=== PATIENT | male | born 1955 | race Caucasian/White ===

== ENCOUNTER → 2018-02-23 09:19 | Outpatient (CLI) | payer OTHER, SELFPAY ==
[2018-02-23 10:17] LABS: Add Manual Diff / Slide Review NO; Eosinophils Percent Auto 4.9 % (2-4); Hematocrit 41.1 % (41-53); Lymphocytes Percent Auto 25.5 % (25-40); Mean Corpuscular Hemoglobin 32.6 PG (26-34); Mean Corpuscular Volume 95.9 fL (80-100); Monocytes Percent Auto 9.8 % (3-14); Neutrophils Absolute Auto 3900 /uL (3000-5900); Neutrophils Percent Auto 58.8 % (50-75); Platelet Count 287 X10^3/uL (150-400); Red Blood Cell Count 4.28 X10^6/uL (4.5-5.9); Red Cell Distribution Width 12.5 % (11.6-14.8); White Blood Cell Count 6.6 X10^3/uL (4.5-11.0)
[2018-02-23 10:35] LABS: Alanine Aminotransferase 36 IU/L (21-72); Albumin 4.8 g/dL (3.5-5.0); Albumin Globulin Ratio 1.7 (1.0-2.8); Alkaline Phosphatase 74 U/L (38-126); Aspartate Aminotransferase 31 IU/L (17-59); BUN Creatinine Ratio 17.8 (6-22); Bilirubin Total 0.5 mg/dL (0.2-1.3); Blood Urea Nitrogen 16 mg/dL (9-20); C-Reactive Protein Quant 0.5 mg/dL (<1.0); Calcium 10.2 mg/dL (8.4-10.2); Carbon Dioxide 30 mmol/L (22-32); Chloride 102 mmol/L (98-107); Estimated Glomerular Filt Rate > 60.0 mL/min (>60); Globulin 2.9 g/dL (1.7-4.1); Glucose 121 mg/dL (80-110); HEMOLYSIS < 15 (0-50); Potassium 4.6 mmol/L (3.4-5.1); Sodium 146 mmol/L (137-145); Total Protein 7.7 g/dL (6.3-8.2); Uric Acid 5.3 mg/dL (3.5-8.5)
[2018-02-23 10:37] LABS: Erythrocyte Sedimentation Rate 13 MM/HR (0-15)
== END ==
PROVIDERS: Family Provider Physician Assistant; PCP Physician Assistant; Visit Provider Specialist/Technologist Athletic Trainer
DX: M10.00 Idiopathic gout, unspecified site (principal)
CPT/HCPCS: 36415; 80053; 84550; 85025; 85651; 86140

== ENCOUNTER 2018-03-11 15:15 | Emergency (ER) | payer OTHER, SELFPAY ==
[2018-03-11 15:32] VITALS: BP 185/90; PULSE 66; RESP 18; TEMP 36.7; O2SAT 98
--- NOTE | 2018-03-11 15:49 | DI.CT.S_ITS ---
PROCEDURE: CT HEAD/BRAIN WO CON INDICATIONS: headache, vision change TECHNIQUE: Noncontrast 4.5 mm thick angled axial sections acquired from the foramen magnum to the vertex, with coronal and sagittal reformats. For radiation dose reduction, the following was used: automated exposure control, adjustment of mA and/or kV according to patient size. COMPARISON: None. FINDINGS: Image quality: Excellent. CSF spaces: Basal cisterns are patent. No extra-axial fluid collections. The ventricles are symmetric in size and shape. Brain: No intracranial bleeds or masses. There is cerebral volume loss for age, with resultant ventricular and sulcal prominence. There are periventricular and deep white matter chronic small vessel ischemic changes. There is intracranial internal carotid artery atherosclerosis. Skull and face: Calvarium and visualized facial bones appear intact, without suspicious lesions. Sinuses: Visualized sinuses demonstrate mild pansinus mucosal thickening most prominent in the ethmoid sinuses. IMPRESSION: 1. No acute intracranial process. 2. Mild atrophy and chronic microvascular ischemic changes. Dictated by: Sindy Humphrey M.D. on 03/11/2018 at 16:16 Approved by: Sindy Humphrey M.D. on 03/11/2018 at 16:16
[2018-03-11] MEDS: predniSONE 20 MG TABLET 40 MG PO (15:55)
--- NOTE | 2018-03-11 15:57 | PC.NURSE ---
Pt reports to ED after eye exam. Comes from Urgent care where eye DR sent him for vision changes in rt eye and possibly rt dental pain. Also told has high BP. Is a/o x4, LAND, and bp [address] and lab will draw. Meds per MD order
[2018-03-11 16:18] LABS: Add Manual Diff / Slide Review NO; Basophils Percent Auto 1.4 % (0-2); Eosinophils Percent Auto 3.8 % (2-4); Hematocrit 41.7 % (41-53); Hemoglobin 14.1 g/dL (13.5-17.5); Lymphocytes Percent Auto 27.4 % (25-40); Mean Corpuscular HGB Conc 33.9 % (30-36); Mean Corpuscular Hemoglobin 32.5 PG (26-34); Mean Corpuscular Volume 95.9 fL (80-100); Monocytes Percent Auto 9.5 % (3-14); Neutrophils Absolute Auto 5200 /uL (3000-5900); Neutrophils Percent Auto 57.9 % (50-75); Platelet Count 303 X10^3/uL (150-400); Red Blood Cell Count 4.35 X10^6/uL (4.5-5.9); Red Cell Distribution Width 12.9 % (11.6-14.8); White Blood Cell Count 9.1 X10^3/uL (4.5-11.0)
[2018-03-11 16:34] LABS: BUN Creatinine Ratio 22.5 (6-22); Blood Urea Nitrogen 18 mg/dL (9-20); C-Reactive Protein Quant < 0.5 mg/dL (<1.0); Calcium 9.4 mg/dL (8.4-10.2); Carbon Dioxide 27 mmol/L (22-32); Chloride 104 mmol/L (98-107); Estimated Glomerular Filt Rate > 60.0 mL/min (>60); Glucose 92 mg/dL (80-110); HEMOLYSIS < 15 (0-50); Potassium 4.3 mmol/L (3.4-5.1); Sodium 145 mmol/L (137-145)
--- NOTE | 2018-03-11 16:50 | ED.EYEPROB ---
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 The patient has had blurred vision in his right eye for over 1 month and visited his cattle dipper to discuss whether not his gout medications may have contributed. His cattle dipper recommended he see an eye doctor which just happened today. His eye exam was completed and the patient was sent here for evaluation of possible temporal arteritis (giant cell arteritis). The patient also reports some right-sided temporal pain that comes and goes and occasionally swells. Optometry will be sending their note but states his vision was still 20/40 in the right eye and states his visual changes only of blurring. The patient denies any other neurologic problems such as numbness, tingling or weakness. He denies any injury. He did have an episode hypertension of the 190s while at the optometry office. The patient has no chest pain or shortness of breath. He denies any nausea or vomiting. He denies any injury to head neck or eye. Visual Acuity 20/40. MD chief complaint: eye pain and vision change Onset (ago): month(s) Onset description: unknown Duration: constant Location: right eye Eye Symptoms: blurry vision Place: home Associated symptoms: headache Treatments Prior to Arrival: other Related Data Patient tetanus UTD: Yes Home Medications Medication Instructions Recorded Confirmed ibuprofen 200 mg PO PRN PRN #0 06/02/17 03/11/18 allopurinol 300 mg PO DAILY 03/11/18 03/11/18 Previous Rx's Medication Instructions Recorded prednisone 20 mg PO BID 30 Days #60 tab 03/11/18 Allergies Allergy/AdvReac Type Severity Reaction Status Date / Time No Known Drug Allergies Allergy Verified 03/11/18 15:31 Review of Systems Review of Systems All systems reviewed & are unremarkable except as noted in HPI and below Constitutional Denies chills, Denies fever(s), Reports headache(s), Denies lethargy and Denies weakness Eyes Reports blurry vision, Denies change in vision, Denies eye discharge, Denies irritation, Denies loss of vision and Reports eye pain ENT Ears, Nose, Mouth, and Throat: Denies change in voice, Reports headache(s), Denies neck pain and Denies sore throat Cardiovascular Denies chest pain, Denies irregular heart rhythm, Denies lightheadedness, Denies palpitations, Denies dyspnea, Denies dyspnea on exertion and Denies orthopnea Respiratory Denies cough, Denies dyspnea, Denies dyspnea on exertion and Denies wheezing Gastrointestinal Gastrointestinal: Denies abdominal pain, Denies change in bowel habits, Denies diarrhea, Denies nausea and Denies vomiting Genitourinary Denies hematuria, Denies flank pain, Denies urinary incontinence and Denies urinary urgency Musculoskeletal Denies neck pain Integumentary/Breasts Denies pruritus, Denies erythema, Denies rash and Denies wounds Neurologic Denies confusion, Reports headache(s), Denies loss of vision and Denies weakness Psychiatric Denies anxiety, Denies confusion, Denies depression, Denies homicidal ideation and Denies suicidal ideation Endocrine Denies palpitations Hematologic/Lymphatic Denies easy bruising Allergic/Immunologic Denies wheezing PFSH Family History Brother Gout, unspecified Essential hypertension Mother Essential hypertension Social History Smoking Status: Never smoker Exam Narrative Exam Narrative: GENERAL: This is a well-nourished, well-developed patient, in mild distress. HEAD: Atraumatic. Normocephalic. No temporal or scalp tenderness. EYES: Pupils equal round and reactive. Extraocular motions intact. No scleral icterus. No injection or drainage. ENT: Nose without bleeding, purulent drainage or septal hematoma. Throat without erythema, tonsillar hypertrophy or exudate. Uvula midline. Airway patent. NECK: Trachea midline. No JVD or lymphadenopathy. Supple, nontender, no meningeal signs. CARDIOVASCULAR: Regular rate and rhythm without murmurs, gallops, or rubs. RESPIRATORY: Clear to auscultation. Breath sounds equal bilaterally. No wheezes, rales, or rhonchi. GASTROINTESTINAL: Abdomen soft, non-tender, nondistended. No hepato-splenomegaly, or palpable masses. No guarding. EXTREMITIES: No clubbing, cyanosis, or edema. No joint tenderness, effusion, or edema noted. BACK: Nontender without deformity or crepitance. No flank tenderness. NEURO: AOx3. SKIN: No rash or erythema. NIH Stroke Scale 1a. LOC: Patient is alert and keenly responsive (0) 1b. LOC Questions: Patient answers both LOC questions accurately (0) 1c. LOC Commands: Patient performs both tasks correctly (0) 2. Best Gaze: Normal (0) 3. Visual: No visual loss (0) 4. Facial palsy: Normal symmetrical movements (0) 5. Motor arm: No drift (0) 6. Motor leg: No drift (0) 7. Limb ataxia: Absent (0) 8. Sensory: Normal (0) 9. Best language: No aphasia; normal (0) 10. Dysarthria: Normal (0) 11. Extinction and inattention: No abnormality (0) NIHSS: 0 Initial Vital Signs Initial Vital Signs: Vital Signs Temperature 98.1 F 03/11/18 15:32 Pulse Rate 66 03/11/18 15:32 Respiratory Rate 18 03/11/18 15:32 Blood Pressure 185/90 H 03/11/18 15:32 Pulse Oximetry 98 03/11/18 15:32 Course Orders Ordered: ED Orders 03/11/18 15:49 CT head/brain wo con Stat 03/11/18 16:08 Basic Metabolic Panel Stat C-Reactive Protein Quant Stat Complete Blood Count AUTO DIFF Stat Erythrocyte Sedimentation Rate Stat Discontinued Medications Prednisone (Deltasone) 40 mg PO NOW ONE Stop: 03/11/18 15:51 Last Admin: 03/11/18 15:55 Dose: 40 mg Reevaluation(s) Reevaluation #1: Patient's picking crew supervisor from [facility] called and related above information including right-sided reproducible temporal headache with associated visual change. She noted no significant findings on her exam Consultations Consultation #1: call to [facility] to consult with OPHTHO. I have related the patient's history and physical as well as the findings from local Optometry. We discussed negative CT and normal labs including inflammatory markers, ESR and CRP. We agree that there is still a slight suspicion for giant cell arteritis and the patient is most appropriately placed on steroids and follow up closely with local ophthalmology. Time: 17:10 Vital Signs - 8 hr 03/11/18 15:32 03/11/18 18:05 03/11/18 18:16 Temperature 98.1 F Pulse Rate 66 77 74 Respiratory Rate 18 21 20 Blood Pressure 185/90 H 156/91 H Blood Pressure [Right Arm] 156/91 H Pulse Oximetry 98 94 98 MDM - Eye Problem Lab Data Result diagrams: 03/11/18 16:08 03/11/18 16:08 Lab Results 03/11/18 03/11/18 Range/Units 16:08 16:08 WBC 9.1 (4.5-11.0) X10^3/uL RBC 4.35 L (4.5-5.9) X10^6/uL Hgb 14.1 (13.5-17.5) g/dL Hct 41.7 (41-53) % MCV 95.9 (80-100) fL MCH 32.5 (26-34) PG MCHC 33.9 (30-36) % RDW 12.9 (11.6-14.8) % Plt Count 303 (150-400) X10^3/uL Neut % (Auto) 57.9 (50-75) % Lymph % (Auto) 27.4 (25-40) % [place] % (Auto) 9.5 (3-14) % Eos % (Auto) 3.8 (2-4) % Baso % (Auto) 1.4 (0-2) % Neut # (Auto) 5200 (9938-0977) /uL ESR 13 (0-15) MM/HR Sodium 145 (137-145) mmol/L Potassium 4.3 (3.4-5.1) mmol/L Chloride 104 (98-107) mmol/L Carbon Dioxide 27 (22-32) mmol/L BUN 18 (9-20) mg/dL Creatinine 0.80 (0.66-1.25) mg/dL Estimated GFR > 60.0 (>60) mL/min BUN/Creatinine Ratio 22.5 H (6-22) Glucose 92 (80-110) mg/dL Calcium 9.4 (8.4-10.2) mg/dL C-Reactive Protein < 0.5 (<1.0) mg/dL Discharge Plan Departure Patient Disposition: Home Clinical Impression: Change in vision, GCA (giant cell arteritis) Discharge Date/Time: 03/11/18 18:17 Interventions: ED Discharge Assessment Last Done: 03/11/18 18:16 Instructions: DI for Visual Field Disturbances Activity Restrictions/Additional Instructions: *You have been diagnosed with [ right-sided headache blurred vision, suspicion remains for giant cell arteritis ] *What to do: *Take medications as directed: Your prescription has been electronically transmitted to your preferred pharmacy *Follow up with Ophthalmology, please arrive at their office tomorrow morning at 8:30 a.m.. Let them know your in the emergency department and we request prompt follow-up for continued evaluation and possible management giant cell arteritis *Return to ER if you should have any new, worsening or concerning symptoms Prescriptions: New prednisone 20 mg tablet 20 mg PO BID 30 Days Qty: 60 RF: 0 No Action ibuprofen 200 MG tablet 200 mg PO PRN PRN (Reason: Pain, Mild) Qty: 0 RF: 0 allopurinol 300 mg Tablet 300 mg PO DAILY RF: 0 Referrals: Troy Nickerson MD [Physician] -
[2018-03-11 16:52] LABS: Erythrocyte Sedimentation Rate 13 MM/HR (0-15)
--- NOTE | 2018-03-11 16:54 | ED_ITS ---
HPI - Eye Problem General Chief complaint: Hypertension Stated complaint: High BP Time Seen by Provider: 03/11/18 15:34 Source: patient Mode of arrival: ambulatory Limitations: no limitations History of Present Illness HPI Narrative: 62-year-old nonsmoker presents to the emergency department at the request of his snubber for evaluation right-sided headache and visual change. The patient has had blurred vision in his right eye for over 1 month and visited his photographic press screwmaker to discuss whether not his gout medications may have contributed. His photographic press screwmaker recommended he see an eye doctor which just happened today. His eye exam was completed and the patient was sent here for evaluation of possible temporal arteritis (giant cell arteritis). The patient also reports some right-sided temporal pain that comes and goes and occasionally swells. Optometry will be sending their note but states his vision was still 20/40 in the right eye and states his visual changes only of blurring. The patient denies any other neurologic problems such as numbness, tingling or weakness. He denies any injury. He did have an episode hypertension of the 190s while at the optometry office. The patient has no chest pain or shortness of breath. He denies any nausea or vomiting. He denies any injury to head neck or eye. Visual Acuity 20/40. MD chief complaint: eye pain and vision change Onset (ago): month(s) Onset description: unknown Duration: constant Location: right eye Eye Symptoms: blurry vision Place: home Associated symptoms: headache Treatments Prior to Arrival: other Related Data Patient tetanus UTD: Yes Home Medications Medication Instructions Recorded Confirmed ibuprofen 200 mg PO PRN PRN #0 06/02/17 03/11/18 allopurinol 300 mg PO DAILY 03/11/18 03/11/18 Previous Rx's Medication Instructions Recorded prednisone 20 mg PO BID 30 Days #60 tab 03/11/18 Allergies Allergy/AdvReac Type Severity Reaction Status Date / Time No Known Drug Allergies Allergy Verified 03/11/18 15:31 Review of Systems Review of Systems All systems reviewed & are unremarkable except as noted in HPI and below Constitutional Denies chills, Denies fever(s), Reports headache(s), Denies lethargy and Denies weakness Eyes Reports blurry vision, Denies change in vision, Denies eye discharge, Denies irritation, Denies loss of vision and Reports eye pain ENT Ears, Nose, Mouth, and Throat: Denies change in voice, Reports headache(s), Denies neck pain and Denies sore throat Cardiovascular Denies chest pain, Denies irregular heart rhythm, Denies lightheadedness, Denies palpitations, Denies dyspnea, Denies dyspnea on exertion and Denies orthopnea Respiratory Denies cough, Denies dyspnea, Denies dyspnea on exertion and Denies wheezing Gastrointestinal Gastrointestinal: Denies abdominal pain, Denies change in bowel habits, Denies diarrhea, Denies nausea and Denies vomiting Genitourinary Denies hematuria, Denies flank pain, Denies urinary incontinence and Denies urinary urgency Musculoskeletal Denies neck pain Integumentary/Breasts Denies pruritus, Denies erythema, Denies rash and Denies wounds Neurologic Denies confusion, Reports headache(s), Denies loss of vision and Denies weakness Psychiatric Denies anxiety, Denies confusion, Denies depression, Denies homicidal ideation and Denies suicidal ideation Endocrine Denies palpitations Hematologic/Lymphatic Denies easy bruising Allergic/Immunologic Denies wheezing PFSH Family History Brother Gout, unspecified Essential hypertension Mother Essential hypertension Social History Smoking Status: Never smoker Exam Narrative Exam Narrative: GENERAL: This is a well-nourished, well-developed patient, in mild distress. HEAD: Atraumatic. Normocephalic. No temporal or scalp tenderness. EYES: Pupils equal round and reactive. Extraocular motions intact. No scleral icterus. No injection or drainage. ENT: Nose without bleeding, purulent drainage or septal hematoma. Throat without erythema, tonsillar hypertrophy or exudate. Uvula midline. Airway patent. NECK: Trachea midline. No JVD or lymphadenopathy. Supple, nontender, no meningeal signs. CARDIOVASCULAR: Regular rate and rhythm without murmurs, gallops, or rubs. RESPIRATORY: Clear to auscultation. Breath sounds equal bilaterally. No wheezes , rales, or rhonchi. GASTROINTESTINAL: Abdomen soft, non-tender, nondistended. No hepato-splenomegaly , or palpable masses. No guarding. EXTREMITIES: No clubbing, cyanosis, or edema. No joint tenderness, effusion, or edema noted. BACK: Nontender without deformity or crepitance. No flank tenderness. NEURO: AOx3. SKIN: No rash or erythema. NIH Stroke Scale 1a. LOC: Patient is alert and keenly responsive (0) 1b. LOC Questions: Patient answers both LOC questions accurately (0) 1c. LOC Commands: Patient performs both tasks correctly (0) 2. Best Gaze: Normal (0) 3. Visual: No visual loss (0) 4. Facial palsy: Normal symmetrical movements (0) 5. Motor arm: No drift (0) 6. Motor leg: No drift (0) 7. Limb ataxia: Absent (0) 8. Sensory: Normal (0) 9. Best language: No aphasia; normal (0) 10. Dysarthria: Normal (0) 11. Extinction and inattention: No abnormality (0) NIHSS: 0 Initial Vital Signs Initial Vital Signs: Vital Signs Temperature 98.1 F 03/11/18 15:32 Pulse Rate 66 03/11/18 15:32 Respiratory Rate 18 03/11/18 15:32 Blood Pressure 185/90 H 03/11/18 15:32 Pulse Oximetry 98 03/11/18 15:32 Course Orders Ordered: ED Orders 03/11/18 15:49 CT head/brain wo con Stat 03/11/18 16:08 Basic Metabolic Panel Stat C-Reactive Protein Quant Stat Complete Blood Count AUTO DIFF Stat Erythrocyte Sedimentation Rate Stat Discontinued Medications Prednisone (Deltasone) 40 mg PO NOW ONE Stop: 03/11/18 15:51 Last Admin: 03/11/18 15:55 Dose: 40 mg Reevaluation(s) Reevaluation #1: Patient's snubber from [facility] called and related above information including right-sided reproducible temporal headache with associated visual change. She noted no significant findings on her exam Consultations Consultation #1: call to [facility] to consult with OPHTHO. I have related the patient's history and physical as well as the findings from local Optometry. We discussed negative CT and normal labs including inflammatory markers, ESR and CRP. We agree that there is still a slight suspicion for giant cell arteritis and the patient is most appropriately placed on steroids and follow up closely with local ophthalmology. Time: 17:10 Vital Signs - 8 hr 03/11/18 15:32 03/11/18 18:05 03/11/18 18:16 Temperature 98.1 F Pulse Rate 66 77 74 Respiratory Rate 18 21 20 Blood Pressure 185/90 H 156/91 H Blood Pressure [Right Arm] 156/91 H Pulse Oximetry 98 94 98 MDM - Eye Problem Lab Data Result diagrams: 03/11/18 16:08 03/11/18 16:08 Lab Results 03/11/18 03/11/18 Range/Units 16:08 16:08 WBC 9.1 (4.5-11.0) X10^3/uL RBC 4.35 L (4.5-5.9) X10^6/uL Hgb 14.1 (13.5-17.5) g/dL Hct 41.7 (41-53) % MCV 95.9 (80-100) fL MCH 32.5 (26-34) PG MCHC 33.9 (30-36) % RDW 12.9 (11.6-14.8) % Plt Count 303 (150-400) X10^3/uL Neut % (Auto) 57.9 (50-75) % Lymph % (Auto) 27.4 (25-40) % [place] % (Auto) 9.5 (3-14) % Eos % (Auto) 3.8 (2-4) % Baso % (Auto) 1.4 (0-2) % Neut # (Auto) 5200 (1938-6328) /uL ESR 13 (0-15) MM/HR Sodium 145 (137-145) mmol/L Potassium 4.3 (3.4-5.1) mmol/L Chloride 104 (98-107) mmol/L Carbon Dioxide 27 (22-32) mmol/L BUN 18 (9-20) mg/dL Creatinine 0.80 (0.66-1.25) mg/dL Estimated GFR > 60.0 (>60) mL/min BUN/Creatinine Ratio 22.5 H (6-22) Glucose 92 (80-110) mg/dL Calcium 9.4 (8.4-10.2) mg/dL C-Reactive Protein < 0.5 (<1.0) mg/dL Discharge Plan Departure Patient Disposition: Home Clinical Impression: Change in vision, GCA (giant cell arteritis) Discharge Date/Time: 03/11/18 18:17 Interventions: ED Discharge Assessment Last Done: 03/11/18 18:16 Instructions: DI for Visual Field Disturbances Activity Restrictions/Additional Instructions: *You have been diagnosed with [ right-sided headache blurred vision, suspicion remains for giant cell arteritis ] *What to do: *Take medications as directed: Your prescription has been electronically transmitted to your preferred pharmacy *Follow up with Ophthalmology, please arrive at their office tomorrow morning at 8:30 a.m.. Let them know your in the emergency department and we request prompt follow-up for continued evaluation and possible management giant cell arteritis *Return to ER if you should have any new, worsening or concerning symptoms Prescriptions: New prednisone 20 mg tablet 20 mg PO BID 30 Days Qty: 60 RF: 0 No Action ibuprofen 200 MG tablet 200 mg PO PRN PRN (Reason: Pain, Mild) Qty: 0 RF: 0 allopurinol 300 mg Tablet 300 mg PO DAILY RF: 0 Referrals: Troy Nickerson MD [Physician] -
[2018-03-11 18:05] VITALS: BP 156/91; PULSE 77; RESP 21; O2SAT 94
[2018-03-11 18:16] VITALS: BP 156/91; PULSE 74; RESP 20; O2SAT 98
== END 2018-03-11 18:17 | disposition home or self-care (01) ==
PROVIDERS: Emergency Provider Emergency Medicine; Family Provider Physician Assistant; PCP Physician Assistant
DX: H53.9 Unspecified visual disturbance (principal); M31.6 Other giant cell arteritis
CPT/HCPCS: 36415; 70450; 80048; 85025; 85651; 86140; 93041; 99283; 99285

== ENCOUNTER → 2019-02-02 07:57 | Outpatient (CLI) | payer OTHER, SELFPAY ==
[2019-02-02 09:32] LABS: Alanine Aminotransferase 16 IU/L (21-72); Albumin 4.5 g/dL (3.5-5.0); Alkaline Phosphatase 74 U/L (38-126); Aspartate Aminotransferase 25 IU/L (17-59); BUN Creatinine Ratio 16.3 (6-22); Bilirubin Total 0.5 mg/dL (0.2-1.3); Blood Urea Nitrogen 13 mg/dL (9-20); Calcium 9.6 mg/dL (8.4-10.2); Carbon Dioxide 29 mmol/L (22-32); Chloride 103 mmol/L (98-107); Estimated Glomerular Filt Rate > 60.0 mL/min (>60); Globulin 2.9 g/dL (1.7-4.1); Glucose 96 mg/dL (80-110); Potassium 3.9 mmol/L (3.4-5.1); Sodium 143 mmol/L (137-145); Total Protein 7.4 g/dL (6.3-8.2); Uric Acid 4.9 mg/dL (3.5-8.5)
[2019-02-02 09:33] LABS: Albumin Globulin Ratio 1.6 (1.0-2.8); Cholesterol 189 mg/dL (140-199); HDL Cholesterol 38 mg/dL (40-60); HEMOLYSIS < 15 (0-50); LDL Cholesterol Calculated 128 mg/dL (<100); Triglycerides 113 mg/dL (35-150)
[2019-02-02 09:44] LABS: Creatinine Urine Random 137.3 mg/dL; Microalbumi Creatinin Ratio Ur 4.3 ug/mg CR (<30); Microalbumin Urine Random < 0.6 mg/dL (0-1.6)
[2019-02-02 10:02] LABS: Prostate Specific Antigen Scrn 1.01 ng/mL (0.1-4.0)
== END ==
PROVIDERS: PCP Physician Assistant; Visit Provider Physician Assistant
DX: E78.1 Pure hyperglyceridemia (principal); I10 Essential (primary) hypertension; M10.9 Gout, unspecified; Z12.5 Encounter for screening for malignant neoplasm of prostate
CPT/HCPCS: 36415; 80053; 80061; 82043; 82570; 84550; G0103

== ENCOUNTER → 2020-02-20 08:26 | Outpatient (CLI) | payer OTHER, SELFPAY ==
[2020-02-20 09:08] LABS: Hemoglobin 13.7 g/dL (13.5-17.5); Mean Corpuscular HGB Conc 34.3 % (30-36); Mean Corpuscular Hemoglobin 33.1 PG (26-34); Mean Corpuscular Volume 96.6 fL (80-100); Platelet Count 298 X10^3/uL (150-400); Red Blood Cell Count 4.15 X10^6/uL (4.5-5.9); Red Cell Distribution Width 13.1 % (11.6-14.8); White Blood Cell Count 5.9 X10^3/uL (4.5-11.0)
[2020-02-20 09:30] LABS: Alanine Aminotransferase 21 IU/L (<50); Albumin 4.5 g/dL (3.5-5.0); Albumin Globulin Ratio 1.5 (1.0-2.8); Alkaline Phosphatase 76 U/L (38-126); Aspartate Aminotransferase 25 IU/L (17-59); BUN Creatinine Ratio 20.7 (6-22); Bilirubin Total 0.5 mg/dL (0.2-1.3); Blood Urea Nitrogen 18 mg/dL (9-20); Calcium 9.6 mg/dL (8.4-10.2); Carbon Dioxide 31 mmol/L (22-32); Chloride 104 mmol/L (98-107); Cholesterol 218 mg/dL (140-199); Estimated Glomerular Filt Rate > 60.0 mL/min (>60); Glucose 141 mg/dL (80-110); HDL Cholesterol 54 mg/dL (40-60); HEMOLYSIS < 15 (0-50); LDL Cholesterol Calculated 141 mg/dL (<100); Potassium 4.4 mmol/L (3.4-5.1); Sodium 142 mmol/L (137-145); Total Protein 7.5 g/dL (6.3-8.2); Triglycerides 117 mg/dL (35-150); Uric Acid 3.9 mg/dL (3.5-8.5)
[2020-02-20 09:58] LABS: TSH w/ Reflex to FT4 1.56 uIU/mL (0.47-4.68)
== END ==
PROVIDERS: PCP Registered Nurse Diabetes Educator; Referring Provider Registered Nurse Diabetes Educator; Visit Provider Registered Nurse Diabetes Educator
DX: E78.5 Hyperlipidemia, unspecified (principal); I10 Essential (primary) hypertension; M1A.0790 Idiopathic chronic gout, unspecified ankle and foot, without tophus (tophi)
CPT/HCPCS: 36415; 80053; 80061; 84443; 84550; 85027

== ENCOUNTER → 2020-02-22 07:07 | Outpatient (CLI) | payer OTHER, SELFPAY ==
[2020-02-22 08:37] LABS: Hemoglobin A1C% w Est Avg Glu 5.4 % (4.0-6.0)
[2020-02-22 08:50] LABS: Glucose 95 mg/dL (80-110)
== END ==
PROVIDERS: PCP Registered Nurse Diabetes Educator; Referring Provider Registered Nurse Diabetes Educator; Visit Provider Registered Nurse Diabetes Educator
DX: R73.9 Hyperglycemia, unspecified (principal)
CPT/HCPCS: 36415; 82947; 83036

== ENCOUNTER → 2020-08-16 12:54 | Outpatient (CLI) | payer OTHER, SELFPAY ==
[2020-08-16] MEDS: COVID-19 VACC, Ad26(JANSSEN)/PF 0.5 ML IM (13:06)
== END ==
PROVIDERS: PCP Registered Nurse Diabetes Educator; Visit Provider Internal Medicine
DX: Z23 Encounter for immunization (principal)
CPT/HCPCS: 0031A; 91303

== ENCOUNTER → 2020-09-06 12:20 | Outpatient (CLI) | payer OTHER, SELFPAY ==
--- NOTE | 2020-09-06 12:21 | DI.RAD.S_ITS ---
PROCEDURE: XR KNEE LT 3V INDICATIONS: L knee pain x 3 weeks, no trauma. TECHNIQUE: 3 views of the knee were acquired. COMPARISON: None. FINDINGS: Bones: No acute fractures or dislocations. No suspicious bony lesions. Mild tricompartmental degenerative changes of the left knee with marginal osteophyte formation Soft tissues: There is a small suprapatellar joint effusion. No suspicious soft tissue calcifications. IMPRESSION: Left knee without acute fracture or dislocation. Mild tricompartmental degenerative change of the left knee with associated suprapatellar joint effusion. If there are persistent symptoms or clinical suspicion for pathology, then repeat radiographs or advanced imaging (CT, MRI or bone scan) may be considered for further evaluation. Dictated by: Dakota Ruffin M.D. on 09/06/2020 at 17:31 Approved by: Dakota Ruffin M.D. on 09/06/2020 at 17:32
== END ==
PROVIDERS: PCP Registered Nurse Diabetes Educator; Referring Provider Registered Nurse Diabetes Educator; Visit Provider Registered Nurse Diabetes Educator
DX: M17.12 Unilateral primary osteoarthritis, left knee (principal); M25.462 Effusion, left knee
CPT/HCPCS: 73562

== ENCOUNTER → 2021-02-12 07:26 | Outpatient (CLI) | payer OTHER, SELFPAY ==
[2021-02-12 07:54] LABS: Add Manual Diff / Slide Review NO; Basophils Absolute Auto 100 /uL (0-100); Basophils Percent Auto 1.2 % (0-2); Eosinophils Absolute Auto 300 /uL (0-450); Hematocrit 39.2 % (41-53); Hemoglobin 13.1 g/dL (13.5-17.5); Lymphocytes Absolute Auto 1900 /uL (1100-4500); Lymphocytes Percent Auto 27.8 % (25-40); Mean Corpuscular HGB Conc 33.5 % (30-36); Mean Corpuscular Volume 95.6 fL (80-100); Monocytes Absolute Auto 600 /uL (0-900); Monocytes Percent Auto 8.4 % (3-14); Neutrophils Absolute Auto 3900 /uL (1500-7000); Neutrophils Percent Auto 57.6 % (50-75); Platelet Count 319 X10^3/uL (150-400); Red Cell Distribution Width 12.8 % (11.6-14.8); White Blood Cell Count 6.8 X10^3/uL (4.5-11.0)
[2021-02-12 08:09] LABS: Alanine Aminotransferase 18 IU/L (<50); Albumin 4.6 g/dL (3.5-5.0); Albumin Globulin Ratio 1.6 (1.0-2.8); Alkaline Phosphatase 70 U/L (38-126); Aspartate Aminotransferase 24 IU/L (17-59); BUN Creatinine Ratio 20.5 (6-22); Bilirubin Total 0.5 mg/dL (0.2-1.3); Blood Urea Nitrogen 16 mg/dL (9-20); Calcium 9.5 mg/dL (8.4-10.2); Carbon Dioxide 31 mmol/L (22-32); Chloride 103 mmol/L (98-107); Cholesterol 208 mg/dL (140-199); Estimated Glomerular Filt Rate > 60.0 mL/min (>60); Globulin 2.8 g/dL (1.7-4.1); Glucose 96 mg/dL (80-110); HDL Cholesterol 40 mg/dL (40-60); HEMOLYSIS < 15 (0-50); LDL Cholesterol Calculated 138 mg/dL (<100); Potassium 4.1 mmol/L (3.4-5.1); Sodium 143 mmol/L (137-145); Total Protein 7.4 g/dL (6.3-8.2); Triglycerides 150 mg/dL (35-150); Uric Acid 4.9 mg/dL (3.5-8.5)
[2021-02-12 08:39] LABS: TSH w/ Reflex to FT4 1.65 uIU/mL (0.47-4.68)
== END ==
PROVIDERS: PCP Registered Nurse Diabetes Educator; Referring Provider Registered Nurse Diabetes Educator; Visit Provider Registered Nurse Diabetes Educator
DX: E78.5 Hyperlipidemia, unspecified (principal); I10 Essential (primary) hypertension; M1A.0790 Idiopathic chronic gout, unspecified ankle and foot, without tophus (tophi); R79.89 Other specified abnormal findings of blood chemistry
CPT/HCPCS: 36415; 80053; 80061; 84443; 84550; 85025

== ENCOUNTER → 2021-05-22 07:52 | Outpatient (CLI) | payer OTHER, SELFPAY ==
[2021-05-22 09:31] LABS: Add Manual Diff / Slide Review NO; Basophils Absolute Auto 100 /uL (0-100); Basophils Percent Auto 0.9 % (0-2); Eosinophils Absolute Auto 300 /uL (0-450); Hematocrit 37.6 % (41-53); Lymphocytes Absolute Auto 2100 /uL (1100-4500); Lymphocytes Percent Auto 31.3 % (25-40); Mean Corpuscular HGB Conc 34.6 % (30-36); Mean Corpuscular Hemoglobin 32.6 PG (26-34); Mean Corpuscular Volume 94.3 fL (80-100); Monocytes Absolute Auto 600 /uL (0-900); Monocytes Percent Auto 9.6 % (3-14); Neutrophils Absolute Auto 3500 /uL (1500-7000); Neutrophils Percent Auto 53.2 % (50-75); Platelet Count 300 X10^3/uL (150-400); Red Blood Cell Count 3.98 X10^6/uL (4.5-5.9); Red Cell Distribution Width 13.1 % (11.6-14.8); White Blood Cell Count 6.6 X10^3/uL (4.5-11.0)
[2021-05-22 10:05] LABS: HEMOLYSIS < 15 (0-50); Iron 152 ug/dL (49-181)
[2021-05-22 10:08] LABS: Cholesterol 203 mg/dL (140-199); HDL Cholesterol 44 mg/dL (40-60); LDL Cholesterol Calculated 128 mg/dL (<100); Triglycerides 155 mg/dL (35-150)
[2021-05-22 10:16] LABS: Percent Iron Saturation 46 % (20-50); Total Iron Binding Capacity 328 ug/dL (261-462); Transferrin 238 mg/dL (206-381)
[2021-05-22 10:41] LABS: Ferritin 77 ng/mL (18-464)
[2021-05-22 11:13] LABS: Folate > 20.0 ng/mL (2.76-20.0); Vitamin B12 987 pg/mL (239-931)
== END ==
PROVIDERS: PCP Registered Nurse Diabetes Educator; Referring Provider Registered Nurse Diabetes Educator; Visit Provider Registered Nurse Diabetes Educator
DX: D64.9 Anemia, unspecified (principal); E78.5 Hyperlipidemia, unspecified
CPT/HCPCS: 36415; 80061; 82607; 82728; 82746; 83540; 83550; 85025

== ENCOUNTER → 2021-08-13 08:58 | Outpatient (CLI) | payer OTHER, SELFPAY ==
[2021-08-15 15:23] LABS: Fecal Immunochemical Test Negative (Negative)
== END ==
PROVIDERS: PCP Registered Nurse Diabetes Educator; Referring Provider Registered Nurse Diabetes Educator; Visit Provider Registered Nurse Diabetes Educator
DX: Z12.11 Encounter for screening for malignant neoplasm of colon (principal)
CPT/HCPCS: 82274

== ENCOUNTER → 2022-02-15 08:38 | Outpatient (CLI) | payer OTHER, SELFPAY ==
[2022-02-15 09:53] LABS: Add Manual Diff / Slide Review NO; Basophils Absolute Auto 100 /uL (0-100); Basophils Percent Auto 0.8 % (0-2); Eosinophils Absolute Auto 300 /uL (0-450); Eosinophils Percent Auto 4.2 % (2-4); Hemoglobin 13.6 g/dL (13.5-17.5); Lymphocytes Absolute Auto 2100 /uL (1100-4500); Lymphocytes Percent Auto 26.8 % (25-40); Mean Corpuscular HGB Conc 34.7 % (30-36); Mean Corpuscular Hemoglobin 32.6 PG (26-34); Monocytes Absolute Auto 900 /uL (0-900); Monocytes Percent Auto 11.3 % (3-14); Neutrophils Absolute Auto 4500 /uL (1500-7000); Neutrophils Percent Auto 56.9 % (50-75); Platelet Count 330 X10^3/uL (150-400); Red Blood Cell Count 4.15 X10^6/uL (4.5-5.9); Red Cell Distribution Width 13.4 % (11.6-14.8); White Blood Cell Count 7.9 X10^3/uL (4.5-11.0)
[2022-02-15 10:16] LABS: Alanine Aminotransferase 26 IU/L (<50); Albumin 4.5 g/dL (3.5-5.0); Albumin Globulin Ratio 1.4 (1.0-2.8); Alkaline Phosphatase 85 U/L (38-126); Aspartate Aminotransferase 28 IU/L (17-59); BUN Creatinine Ratio 21.5 (6-22); Bilirubin Total 0.5 mg/dL (0.2-1.3); Blood Urea Nitrogen 17 mg/dL (9-20); Calcium 9.3 mg/dL (8.4-10.2); Carbon Dioxide 27 mmol/L (22-32); Chloride 103 mmol/L (98-107); Cholesterol 198 mg/dL (140-199); Estimated Glomerular Filt Rate > 60 mL/min (>60); Globulin 3.3 g/dL (1.7-4.1); Glucose 100 mg/dL (80-110); HDL Cholesterol 49 mg/dL (40-60); HEMOLYSIS < 15 (0-50); LDL Cholesterol Calculated 128 mg/dL (<100); Potassium 4.3 mmol/L (3.4-5.1); Sodium 141 mmol/L (137-145); Total Protein 7.8 g/dL (6.3-8.2); Triglycerides 103 mg/dL (35-150)
[2022-02-15 10:45] LABS: TSH w/ Reflex to FT4 1.43 uIU/mL (0.47-4.68)
== END ==
PROVIDERS: PCP Registered Nurse Diabetes Educator; Referring Provider Registered Nurse Diabetes Educator; Visit Provider Registered Nurse Diabetes Educator
DX: D64.9 Anemia, unspecified (principal); E78.5 Hyperlipidemia, unspecified; I10 Essential (primary) hypertension
CPT/HCPCS: 36415; 80053; 80061; 84443; 85025

== ENCOUNTER → 2023-02-26 07:09 | Outpatient (CLI) | payer OTHER, SELFPAY ==
[2023-02-26 07:34] LABS: Hematocrit 39.1 % (41-53); Hemoglobin 13.4 g/dL (13.5-17.5); Mean Corpuscular HGB Conc 34.3 % (30-36); Mean Corpuscular Hemoglobin 32.1 PG (26-34); Mean Corpuscular Volume 93.7 fL (80-100); Platelet Count 304 X10^3/uL (150-400); Red Blood Cell Count 4.17 X10^6/uL (4.5-5.9); White Blood Cell Count 7.6 X10^3/uL (4.5-11.0)
[2023-02-26 07:59] LABS: Alanine Aminotransferase 17 IU/L (<50); Albumin 4.5 g/dL (3.5-5.0); Albumin Globulin Ratio 1.6 (1.0-2.8); Alkaline Phosphatase 69 U/L (38-126); Aspartate Aminotransferase 22 IU/L (17-59); BUN Creatinine Ratio 23.1 (6-22); Bilirubin Total 0.3 mg/dL (0.2-1.3); Blood Urea Nitrogen 18 mg/dL (9-20); Calcium 9.4 mg/dL (8.4-10.2); Carbon Dioxide 28 mmol/L (22-32); Chloride 104 mmol/L (98-107); Cholesterol 190 mg/dL (140-199); Estimated Glomerular Filt Rate > 60 mL/min (>60); Globulin 2.8 g/dL (1.7-4.1); Glucose 94 mg/dL (80-110); HDL Cholesterol 46 mg/dL (40-60); HEMOLYSIS < 15 (0-50); LDL Cholesterol Calculated 124 mg/dL (<100); Potassium 4.3 mmol/L (3.4-5.1); Sodium 139 mmol/L (137-145); Total Protein 7.3 g/dL (6.3-8.2); Triglycerides 100 mg/dL (35-150); Uric Acid 5.8 mg/dL (3.5-8.5)
[2023-02-26 08:28] LABS: TSH w/ Reflex to FT4 1.29 uIU/mL (0.47-4.68)
== END ==
PROVIDERS: PCP Registered Nurse Diabetes Educator; Referring Provider Registered Nurse Diabetes Educator; Visit Provider Registered Nurse Diabetes Educator
DX: E78.5 Hyperlipidemia, unspecified (principal); I10 Essential (primary) hypertension; M1A.0790 Idiopathic chronic gout, unspecified ankle and foot, without tophus (tophi)
CPT/HCPCS: 36415; 80053; 80061; 84443; 84550; 85027

== ENCOUNTER 2023-12-04 12:00 | Emergency (ER) | payer OTHER, SELFPAY ==
[2023-12-04] VITALS (11 sets, daily range): BP systolic 141–209; BP diastolic 66–98; PULSE 52–83; RESP 12–19; TEMP 36.3–36.6; O2SAT 93–100; BMI 28.5
--- NOTE | 2023-12-04 12:14 | EKG_ITS ---
[facility] [address] [place] [address] Test Date: 2023-12-04 Pat Name: Anand Gomez Department: [facility] Room: Gender: Male Broke Handler: BEN : 1955 Requested By: Order Number: [id number] Reading MD: Jaylen Moreno Measurements Intervals [place] Rate: 53 P: 21 HI: 168 QRS: 38 QRSD: 96 T: 26 QT: 456 QTc: 427 Interpretive Statements Sinus bradycardia Electronically Signed On 12-07-2023 8:42:17 PDT by Jaylen Moreno
[2023-12-04 12:35] LABS: Add Manual Diff / Slide Review NO; Basophils Absolute Auto 200 /uL (0-100); Basophils Percent Auto 1.1 % (0-2); Eosinophils Absolute Auto 300 /uL (0-450); Eosinophils Percent Auto 1.8 % (2-4); Hematocrit 39.1 % (41-53); Hemoglobin 13.3 g/dL (13.5-17.5); Lymphocytes Absolute Auto 1700 /uL (1100-4500); Lymphocytes Percent Auto 11.6 % (25-40); Mean Corpuscular HGB Conc 33.9 % (30-36); Mean Corpuscular Hemoglobin 31.1 PG (26-34); Mean Corpuscular Volume 91.8 fL (80-100); Monocytes Absolute Auto 900 /uL (0-900); Monocytes Percent Auto 5.9 % (3-14); Neutrophils Absolute Auto 11600 /uL (1500-7000); Neutrophils Percent Auto 79.6 % (50-75); Platelet Count 345 X10^3/uL (150-400); Red Blood Cell Count 4.26 X10^6/uL (4.5-5.9); Red Cell Distribution Width 12.7 % (11.6-14.8); White Blood Cell Count 14.5 X10^3/uL (4.5-11.0)
[2023-12-04 12:58] LABS: Alanine Aminotransferase 19 IU/L (<50); Albumin 4.6 g/dL (3.5-5.0); Albumin Globulin Ratio 1.5 (1.0-2.8); Alkaline Phosphatase 82 U/L (38-126); Aspartate Aminotransferase 24 IU/L (17-59); Bilirubin Total 0.3 mg/dL (0.2-1.3); Blood Urea Nitrogen 20 mg/dL (9-20); Calcium 9.5 mg/dL (8.4-10.2); Carbon Dioxide 27 mmol/L (22-32); Chloride 104 mmol/L (98-107); Creatine Kinase 73 U/L (55-170); Estimated Glomerular Filt Rate > 60 mL/min (>60); Globulin 3.1 g/dL (1.7-4.1); Glucose 111 mg/dL (80-110); HEMOLYSIS < 15 (0-50); Lipase 123 U/L (23-300); Sodium 138 mmol/L (137-145); Total Protein 7.7 g/dL (6.3-8.2)
[2023-12-04 13:09] LABS: Troponin I < 0.012 ng/mL (0.01-0.034)
--- NOTE | 2023-12-04 14:31 | DI.CT.S_ITS ---
PROCEDURE: CT ABDOMEN PELVIS W CON INDICATIONS: abd pain TECHNIQUE: After the administration of intravenous contrast, axial sections acquired from the lung bases to the pubic symphysis. Coronal and sagittal reformats were performed. For radiation dose reduction, the following was used: automated exposure control, adjustment of mA and/or kV according to patient size. COMPARISON: None. FINDINGS: Image quality: Diagnostic. Lower Chest: No significant findings. ABDOMEN: Liver: No solid mass. Liver has a coarsened appearance of steatosis. Gallbladder: No radiopaque gallstones or wall thickening. Biliary ducts: No biliary dilation. Pancreas: No ductal dilation. Spleen: Size is within normal limits. Adrenal Glands: No adrenal nodules. Kidneys and Ureters: No hydronephrosis. No solid mass. No complex renal cystic lesion which requires follow up. Stomach and Bowel: Normal colonic caliber, without significant wall thickening. Peritoneum: No abnormal intraperitoneal fluid. No free air. Ventral Wall: No significant ventral hernia. Abdominal Nodes: No retroperitoneal or mesenteric adenopathy by size criteria. Vessels: Aorta and inferior vena cava are normal in size. PELVIS: Pelvic Organs: Unremarkable. Bladder: No bladder wall thickening, accounting for underdistention. Pelvic Nodes: No enlarged lymph nodes. Miscellaneous: No inguinal hernias are seen. Bones: No aggressive osseous abnormality. IMPRESSION: No acute intra-abdominal or pelvic process. Hepatic steatosis. Dictated by: Sindy Humphrey M.D. on 12/04/2023 at 15:49 Approved by: Sindy Humphrey M.D. on 12/04/2023 at 15:54
--- NOTE | 2023-12-04 14:37 | ED_ITS ---
HPI - Abdominal Pain General Chief Complaint: Abdominal Pain Stated Complaint: abd px, nausea, chills sweats Time Seen by Provider: 12/04/23 14:18 Source: patient Mode of arrival: Ambulatory History of Present Illness HPI narrative: 68-year-old male with no reported past medical history (previous HTN, HLD, however changed diet and exercise and has been off medications for >6 months) presents for evaluation of 2 days of intermittent abdominal pain with nausea and vomiting. Patient states that pain is cramping in nature, located in the midepigastric region, occasionally radiates to his back. Gets worse with food. Has never had pain similar to this before. No medications taken at home prior to arrival. Patient had severe episode of pain earlier today prompting his visit to the emergency department Related Data Home Medications Medication Instructions Recorded Confirmed ibuprofen 200 mg tablet 200 mg PO PRN PRN Pain, Mild ##0 06/02/17 11/11/23 magnesium 250 mg tablet 250 mg PO DAILY 01/01/23 11/11/23 nitric oxide powder PO 01/01/23 11/11/23 Previous Rx's Medication Instructions Recorded allopurinol 100 mg tablet 100 mg PO DAILY #90 tabs 03/02/23 hyoscyamine sulfate 0.125 mg tablet 0.125 mg PO BID-QID PRN dyspepsia 12/04/23 #30 tabs omeprazole 40 mg capsule,delayed 40 mg PO BID #30 caps 12/04/23 release sucralfate 1 gram tablet (Carafate) 1 g PO QACHS #60 tabs 12/04/23 Allergies Allergy/AdvReac Type Severity Reaction Status Date / Time Penicillins AdvReac Verified 12/04/23 12:13 Patient History Medical History Dyslipidemia Obesity Overweight (BMI 25.0-29.9) Knee pain, bilateral Left anterior shoulder pain Essential (primary) hypertension Right ankle pain (~02/2017) Right foot pain Hallux valgus with bunions of right foot (~02/2017) Arthritis of first metatarsophalangeal (MTP) joint of right foot Gout (2002) Family History Brother Gout, unspecified Essential hypertension Mother Essential hypertension Social History Smoking Status: Former smoker Tobacco: How many years used: 20 second hand exposure: No alcohol intake: current (a few beers per week ) substance use type: does not use Smoking Status: Former smoker alcohol intake frequency: 3 or more drinks per day Substance Use Type: does not use Exam Initial Vital Signs Initial Vital Signs: Vital Signs Temperature 97.4 F L 12/04/23 12:11 Pulse Rate 52 L 12/04/23 12:11 Respiratory Rate 12 12/04/23 12:11 Blood Pressure 209/98 H 12/04/23 12:11 Pulse Oximetry 100 12/04/23 12:11 Oxygen Delivery Method Room Air 12/04/23 12:11 Const: Awake, alert, no acute distress, nontoxic appearing Cardiac: regular rate, regular rhythm RESP: unlabored, clear bilaterally, no wheezing GI: Soft, nontender, nondistended, no rebound, no guarding Skin: Warm, Dry, intact, no rashes Neuro: AO x3, CN II-XII grossly intact, moves all extremities Course Orders Ordered: Discontinued Medications Sodium Chloride (Normal Saline 0.9%) 1,000 mls @ 1,000 mls/hr IV BOLUS ONE Stop: 12/04/23 15:30 Last Infusion: 12/04/23 15:39 Dose: Infused Documented By: Admin: 12/04/23 14:40 Dose: 1,000 mls/hr Documented By: MEGHANN Ondansetron HCl (Ondansetron 4 Mg/2 Ml Inj) 4 mg IV NOW PRN PRN Reason: Nausea And Vomiting Ondansetron HCl (Ondansetron 4 Mg Odt) 4 mg PO NOW PRN PRN Reason: Nausea And Vomiting Vital Signs Vital signs: Vital Signs - 8 hr 12/04/23 12:11 12/04/23 12:14 12/04/23 14:11 Temperature 97.4 F L Pulse Rate 52 L Respiratory Rate 12 Blood Pressure 209/98 H 205/93 H Pulse Oximetry 100 98 Oxygen Delivery Method Room Air 12/04/23 14:12 12/04/23 14:12 12/04/23 14:30 Temperature Pulse Rate 55 L Respiratory Rate Blood Pressure 146/67 H 153/80 H Pulse Oximetry 96 Oxygen Delivery Method 12/04/23 14:30 12/04/23 15:02 12/04/23 15:02 Temperature Pulse Rate 59 L 66 Respiratory Rate Blood Pressure 153/68 H Pulse Oximetry 99 94 Oxygen Delivery Method MDM - Abdominal Pain Differential Diagnosis Differential diagnosis: Likely abdominal pain, gastroenteritis and pancreatitis Lab Data 12/04/23 12:23 12/04/23 12:23 Labs: Lab Results 12/04/23 Range/Units 12:23 WBC 14.5 H (4.5-11.0) X10^3/uL RBC 4.26 L (4.5-5.9) X10^6/uL Hgb 13.3 L (13.5-17.5) g/dL Hct 39.1 L (41-53) % MCV 91.8 (80-100) fL MCH 31.1 (26-34) PG MCHC 33.9 (30-36) % RDW 12.7 (11.6-14.8) % Plt Count 345 (150-400) X10^3/uL Neut % (Auto) 79.6 H (50-75) % Lymph % (Auto) 11.6 L (25-40) % [place] % (Auto) 5.9 (3-14) % Eos % (Auto) 1.8 L (2-4) % Baso % (Auto) 1.1 (0-2) % Neut # (Auto) 17556 H (1936-6975) /uL Lymph # (Auto) 1700 (4839-2506) /uL [place] # (Auto) 900 (0-900) /uL Eos # (Auto) 300 (0-450) /uL Baso # (Auto) 200 H (0-100) /uL Sodium 138 (137-145) mmol/L Potassium 4.0 (3.4-5.1) mmol/L Chloride 104 (98-107) mmol/L Carbon Dioxide 27 (22-32) mmol/L BUN 20 (9-20) mg/dL Creatinine 0.91 (0.66-1.25) mg/dL Estimated GFR > 60 (>60) mL/min BUN/Creatinine Ratio 22.0 (6-22) Glucose 111 H (80-110) mg/dL Lactate 1.2 (0.7-2.1) mmol/L Calcium 9.5 (8.4-10.2) mg/dL Total Bilirubin 0.3 (0.2-1.3) mg/dL AST 24 (17-59) IU/L ALT 19 (<50) IU/L Alkaline Phosphatase 82 (38-126) U/L Total Creatine Kinase 73 (55-170) U/L Troponin I < 0.012 (0.01-0.034) ng/mL Total Protein 7.7 (6.3-8.2) g/dL Albumin 4.6 (3.5-5.0) g/dL Globulin 3.1 (1.7-4.1) g/dL Albumin/Globulin Ratio 1.5 (1.0-2.8) Lipase 123 (23-300) U/L Point of care testing: Urine Dip Bedside Urine Glucose Negative Bedside Urine Bilirubin - Negative Bedside Urine Ketone - Negative Urine Specific [place] 1.005 Bedside Urine Occult Blood - Negative Bedside Urine pH 7.0 Bedside Urine Protein - Negative Bedside Urine Urobilinogen - Negative Bedside Urine Nitrite - Negative Bedside Urine Leukocytes - Negative Esterase Imaging Data CT scan - abdomen/pelvis: Radiologist's Impression: PROCEDURE: CT ABDOMEN PELVIS W CON INDICATIONS: abd pain TECHNIQUE: After the administration of intravenous contrast, axial sections acquired from the lung bases to the pubic symphysis. Coronal and sagittal reformats were performed. For radiation dose reduction, the following was used: automated exposure control, adjustment of mA and/or kV according to patient size. COMPARISON: None. FINDINGS: Image quality: Diagnostic. Lower Chest: No significant findings. ABDOMEN: Liver: No solid mass. Liver has a coarsened appearance of steatosis. Gallbladder: No radiopaque gallstones or wall thickening. Biliary ducts: No biliary dilation. Pancreas: No ductal dilation. Spleen: Size is within normal limits. Adrenal Glands: No adrenal nodules. Kidneys and Ureters: No hydronephrosis. No solid mass. No complex renal cystic lesion which requires follow up. Stomach and Bowel: Normal colonic caliber, without significant wall thickening. Peritoneum: No abnormal intraperitoneal fluid. No free air. Ventral Wall: No significant ventral hernia. Abdominal Nodes: No retroperitoneal or mesenteric adenopathy by size criteria. Vessels: Aorta and inferior vena cava are normal in size. PELVIS: Pelvic Organs: Unremarkable. Bladder: No bladder wall thickening, accounting for underdistention. Pelvic Nodes: No enlarged lymph nodes. Miscellaneous: No inguinal hernias are seen. Bones: No aggressive osseous abnormality. IMPRESSION: No acute intra-abdominal or pelvic process. Hepatic steatosis. Dictated by: Sindy Humphrey M.D. on 12/04/2023 at 15:49 Approved by: Sindy Humphrey M.D. on 12/04/2023 at 15:54 MDM Narrative Medical decision making narrative: Well-appearing patient with intermittent abdominal pain. No pain currently. Abdomen soft, no reproducible tenderness on exam. Laboratory work and CT imaging ordered. Laboratory work shows WBC count 14.5, hemoglobin 13.3, platelets 345, sodium 138, potassium 4.0, creatinine 0.91, normal liver enzymes, troponin undetectable, lipase 123. CT of the abdomen and pelvis seems to show calcifications present in the aorta, however no other acute intra-abdominal process or finding. Fatty liver noted. Patient reassessed, resting comfortably in bed. All lab and imaging findings discussed with the patient in his significant other at bedside. I explained that I do not have a definitive cause for his intermittent symptoms, but recommended treating as though this were a gastric ulcer. Medication sent to pharmacy of choice. I recommended GI or surgical follow up to discuss possibility or necessity of endoscopy and a referral was provided. ED return precautions discussed with the patient and significant other at bedside. Discharge Plan Departure Patient Disposition: Home Clinical Impression: Abdominal pain Instructions: DI for Abdominal Pain-Adult Activity Restrictions/Additional Instructions: Your evaluation today did not show any obvious causes of your abdominal pain. Your white blood cell count was very mildly elevated over normal, however I did not find any evidence of infection on any of your other tests. Your other blood work was normal, and your CT did not show any infection, inflammation, masses, or blockages. I recommend treating this as if it was a gastric ulcer for at least the next 2 weeks to see if this improves her symptoms. Follow up with your primary care doctor and General surgery or Gastroenterology to see if an upper endoscopy is warranted in your situation. Prescriptions: New hyoscyamine sulfate 0.125 mg tablet 0.125 mg PO BID-QID PRN (Reason: dyspepsia) Qty: 30 0RF sucralfate [Carafate] 1 gram tablet 1 g PO QACHS Qty: 60 0RF omeprazole 40 mg capsule,delayed release(DR/EC) 40 mg PO BID Qty: 30 0RF No Action ibuprofen 200 MG tablet 200 mg PO PRN PRN (Reason: Pain, Mild) Qty: 0 nitric oxide powder PO magnesium 250 mg tablet 250 mg PO DAILY allopurinol 100 mg tablet 100 mg PO DAILY Qty: 90 3RF Referrals: Dorcas Bolaños MD [Physician] - Lb Galindo ARNP [Primary Care Provider] - Stand Alone Forms: Patient Portal/API
[2023-12-04] MEDS: SODIUM CHLORIDE 0.9% 1,000 ML 1000 ML IV (14:40)
[2023-12-04 15:27] LABS: Lactate (Lactic Acid) 1.2 mmol/L (0.7-2.1)
== END 2023-12-04 16:47 | disposition home or self-care (01) ==
PROVIDERS: Emergency Provider Emergency Medicine; PCP Registered Nurse Diabetes Educator
DX: R10.13 Epigastric pain (principal); R11.2 Nausea with vomiting, unspecified
CPT/HCPCS: 36415; 74177; 80053; 81003; 82550; 83605; 83690; 84484; 85025; 93005; 96360; 99284; Q9967

== ENCOUNTER → 2024-01-27 07:06 | Outpatient (CLI) | payer OTHER, SELFPAY ==
[2024-01-27 08:17] LABS: Hematocrit 38.9 % (41-53); Hemoglobin 13.3 g/dL (13.5-17.5); Mean Corpuscular HGB Conc 34.2 % (30-36); Mean Corpuscular Hemoglobin 31.7 PG (26-34); Mean Corpuscular Volume 92.7 fL (80-100); Platelet Count 308 X10^3/uL (150-400); Red Cell Distribution Width 13.2 % (11.6-14.8); White Blood Cell Count 6.7 X10^3/uL (4.5-11.0)
[2024-01-27 08:49] LABS: Alanine Aminotransferase 16 IU/L (<50); Albumin 4.3 g/dL (3.5-5.0); Albumin Globulin Ratio 1.6 (1.0-2.8); Alkaline Phosphatase 64 U/L (38-126); Aspartate Aminotransferase 23 IU/L (17-59); BUN Creatinine Ratio 20.3 (6-22); Bilirubin Total 0.5 mg/dL (0.2-1.3); Blood Urea Nitrogen 16 mg/dL (9-20); Calcium 9.6 mg/dL (8.4-10.2); Carbon Dioxide 27 mmol/L (22-32); Chloride 102 mmol/L (98-107); Cholesterol 192 mg/dL (140-199); Estimated Glomerular Filt Rate > 60 mL/min (>60); Globulin 2.7 g/dL (1.7-4.1); Glucose 97 mg/dL (80-110); HDL Cholesterol 42 mg/dL (40-60); HEMOLYSIS < 15 (0-50); LDL Cholesterol Calculated 127 mg/dL (<100); Potassium 4.3 mmol/L (3.4-5.1); Sodium 137 mmol/L (137-145); Triglycerides 117 mg/dL (35-150); Uric Acid 6.4 mg/dL (3.5-8.5)
== END ==
PROVIDERS: PCP Registered Nurse Diabetes Educator; Referring Provider Registered Nurse Diabetes Educator; Visit Provider Registered Nurse Diabetes Educator
DX: E78.5 Hyperlipidemia, unspecified (principal); M10.9 Gout, unspecified; I10 Essential (primary) hypertension; D64.9 Anemia, unspecified
CPT/HCPCS: 36415; 80053; 80061; 84550; 85027

== ENCOUNTER 2024-06-08 05:35 | Observation (INO) | payer OTHER, SELFPAY ==
[2024-06-08] VITALS (25 sets, daily range): BP systolic 96–212; BP diastolic 51–117; PULSE 45–99; RESP 10–32; TEMP 36.3–37.1; O2SAT 94–99; BMI 28.0; BMI 27.7
--- NOTE | 2024-06-08 | PATH_ITS ---
[facility] Accession Number: [id number] No. of containers..01 Tissue . 01 Material submitted: . gallbladder - GALLBLADDER AND CONTENTS . 01 Diagnosis: GALLBLADDER AND CONTENTS, CHOLECYSTECTOMY: Mild chronic calculous cholecystitis with cholesterolosis and reactive changes. Negative for dysplasia and malignancy. MRV 06/10/2024 1348 Local . 01 Electronically signed: . Krystle Caraballo MD, Pathologist NPI- [id number] . 01 Gross description: . Received in formalin with two patient identifiers and gallbladder and contents, is a bauman intact gallbladder measuring 10.4 x 3.0 x 2.4 cm with and smooth external surface. The cystic duct margin is inked blue, and no pericystic lymph node is identified. The lumen contains multiple yellow roughened calculi. The largest measuring 0.6 cm in greatest dimension admixed with green viscous bile. The mucosa is green and brown and velvety with focal denuded areas and no pinpoint yellow discolorations or lesions noted. The friend average 0.3 cm thick. Academic Vice President sections to include the cystic duct margins and full thickness sections are submitted in cassette A1. ([id number]) /DARWIN 06/09/2024 1858 Local . 01 Pathologist provided ICD-10: K80.20 . 01 CPT . 635140 Specimen Comment: A courtesy copy of this report has been sent to [facility] Performed at: [address] [address], [place], [place] [id number] MD Gerardo Burch MD Phone: [phone]
--- NOTE | 2024-06-08 05:59 | EKG_ITS ---
[address] [address] [address], [place] [address] Test Date: 2024-06-08 Pat Name: Anand Gomez Department: Room: Gender: Male Rn Family Practice: robert : 1955 Requested By: Order Number: [id number] Reading MD: Ney Strong Measurements Intervals [place] Rate: 46 P: 13 MN: 176 QRS: 26 QRSD: 98 T: 36 QT: 502 QTc: 439 Interpretive Statements Sinus bradycardia Electronically Signed On 06-09-2024 20:04:20 PST by Ney Strong
[2024-06-08 06:10] LABS: Add Manual Diff / Slide Review NO; Basophils Absolute Auto 100 /uL (0-100); Basophils Percent Auto 0.5 % (0-2); Eosinophils Absolute Auto 0 /uL (0-450); Eosinophils Percent Auto 0.1 % (2-4); Hematocrit 39.4 % (41-53); Hemoglobin 13.5 g/dL (13.5-17.5); Lymphocytes Absolute Auto 1300 /uL (1100-4500); Lymphocytes Percent Auto 10.4 % (25-40); Mean Corpuscular HGB Conc 34.2 % (30-36); Mean Corpuscular Hemoglobin 31.9 PG (26-34); Mean Corpuscular Volume 93.3 fL (80-100); Monocytes Absolute Auto 400 /uL (0-900); Monocytes Percent Auto 3.6 % (3-14); Neutrophils Absolute Auto 10500 /uL (1500-7000); Neutrophils Percent Auto 85.4 % (50-75); Platelet Count 395 X10^3/uL (150-400); Red Blood Cell Count 4.22 X10^6/uL (4.5-5.9); Red Cell Distribution Width 12.4 % (11.6-14.8); White Blood Cell Count 12.2 X10^3/uL (4.5-11.0)
[2024-06-08 06:28] LABS: Alanine Aminotransferase 38 IU/L (<50); Albumin 5.1 g/dL (3.5-5.0); Albumin Globulin Ratio 1.5 (1.0-2.8); Alkaline Phosphatase 67 U/L (38-126); Aspartate Aminotransferase 42 IU/L (17-59); BUN Creatinine Ratio 21.7 (6-22); Bilirubin Total 0.5 mg/dL (0.2-1.3); Blood Urea Nitrogen 18 mg/dL (9-20); Calcium 9.5 mg/dL (8.4-10.2); Carbon Dioxide 24 mmol/L (22-32); Chloride 104 mmol/L (98-107); Estimated Glomerular Filt Rate > 60 mL/min (>60); Globulin 3.4 g/dL (1.7-4.1); Glucose 150 mg/dL (80-110); HEMOLYSIS < 15 (0-50); Lipase 93 U/L (23-300); Potassium 3.7 mmol/L (3.4-5.1); Sodium 141 mmol/L (137-145); Total Protein 8.5 g/dL (6.3-8.2)
[2024-06-08 06:40] LABS: Troponin I < 0.012 ng/mL (0.01-0.034)
--- NOTE | 2024-06-08 07:15 | ED.ABDPAIN ---
HPI - Abdominal Pain General Chief Complaint: Abdominal Pain Stated Complaint: abd pain, vomiting Time Seen by Provider: 06/08/24 06:05 Source: patient Mode of arrival: Ambulatory History of Present Illness HPI narrative: Patient is a 68-year-old male history of hypertension and gout presenting today with periumbilical pain in vomiting. Reports that pain started around 7:00 p.m. last night he has been throwing up off and on all night. No diarrhea. Denies any chest pain. Says it goes straight through to his back. This is happened before they thought it was ulcer. He is scheduled for an EGD but has not had 1 yet. He also reports feeling hot and cold. Related Data Home Medications Medication Instructions Recorded Confirmed magnesium 250 mg tablet 250 mg PO DAILY 01/01/23 06/08/24 nitric oxide powder 1 packet PO DAILY 01/01/23 06/08/24 Previous Rx's Medication Instructions Recorded allopurinol 100 mg tablet 100 mg PO DAILY #90 tabs 02/29/24 lisinopril 5 mg tablet 5 mg PO DAILY #90 tabs 02/29/24 omeprazole 20 mg capsule,delayed 20 mg PO BID 8 weeks #112 caps 05/23/24 release sucralfate 1 gram tablet (Carafate) 1 g PO QACHS ulcer #60 tabs 05/23/24 oxycodone-acetaminophen 5 mg-325 1 tab PO Q4-6H PRN pain #20 tabs 06/08/24 mg tablet (Percocet) sennosides 8.6 mg-docusate sodium 2 tab-cap (2 x 8.6-50 mg) PO 06/08/24 50 mg tablet (Senna-S) BEDTIME #30 tabs Allergies Allergy/AdvReac Type Severity Reaction Status Date / Time Penicillins AdvReac Unknown Verified 06/08/24 10:23 Patient History Medical History Other low back pain Essential hypertension Dyslipidemia Obesity Overweight (BMI 25.0-29.9) Knee pain, bilateral Left anterior shoulder pain Essential (primary) hypertension Right ankle pain (~02/2017) Right foot pain Hallux valgus with bunions of right foot (~02/2017) Arthritis of first metatarsophalangeal (MTP) joint of right foot Gout (2002) Family History Brother Gout, unspecified Essential hypertension Mother Essential hypertension Social History household members: significant other Smoking Status: Former smoker Tobacco: How many years used: 20 second hand exposure: No alcohol intake: former substance use type: does not use Smoking Status: Former smoker alcohol intake frequency: 3 or more drinks per day Exam Initial Vital Signs Initial Vital Signs: Vital Signs Pulse Rate 47 L 06/08/24 05:45 Pulse Oximetry 99 06/08/24 05:45 GENERAL: Alert 68-year-old male appears to not feel well and in no acute distress. HEENT: Head atraumatic,EOMI, pupils reactive, face symmetric, moist mucous membranes CARDIOVASCULAR: Regular rate and rhythm without murmurs, rubs or gallops. RESPIRATORY: Breath sounds equal bilaterally, no wheezes rales or rhonchi. ABDOMEN: Soft, mid periumbilical pain no guarding rebound nipple minimal right upper quadrant pain EXTREMITIES: Normal range of motion, no clubbing or edema. Neurovascularly intact NEUROLOGICAL: Alert and oriented x4.Normal gait and speech. SKIN: Warm, dry, no laceration, no petechiae, no rashes or lesions. Course Orders Ordered: ED Orders 06/08/24 05:56 Complete Blood Count AUTO DIFF Stat Comprehensive Metabolic Panel Stat Lipase Stat 06/08/24 05:59 EKG-12 Lead Stat 06/08/24 06:00 Troponin I Stat 06/08/24 07:43 CT abdomen pelvis w con Stat 06/08/24 08:15 US abdomen limited Stat Acetaminophen (Acetaminophen 325 Mg Tablet) 975 mg PO NOW PRN PRN Reason: Pain, Moderate (4-6) Last Admin: 06/08/24 10:40 Dose: 975 mg Documented By: IF Albuterol (Albuterol 2.5 Mg/3 Ml Neb (Adult)) 2.5 mg INH NOW PRN PRN Reason: Coughing, Wheezing, Dyspnea Hydromorphone HCl (Hydromorphone 1 Mg Inj) 0 mg IV Q5MIN PRN PRN Reason: Pain, Moderate (4-6) Lactated Ringer's (Lactated Ringers) 1,000 mls @ 42 mls/hr IV CONT MITCHELL Last Admin: 06/08/24 10:41 Dose: 42 mls/hr Documented By: IF Meperidine HCl (Meperidine 50 Mg/Ml Inj) 25 mg IV PACUNOW PRN PRN Reason: Moderate pain or shivering Metoclopramide HCl (Metoclopramide 10 Mg/2 Ml Inj) 10 mg IV NOW PRN PRN Reason: Nausea And Vomiting Ondansetron HCl (Ondansetron 4 Mg/2 Ml Inj) 4 mg IV NOW PRN PRN Reason: Nausea And Vomiting Last Admin: 06/08/24 07:17 Dose: 4 mg Documented By: COLETTE Ondansetron HCl (Ondansetron 4 Mg Odt) 4 mg PO NOW PRN PRN Reason: Nausea And Vomiting Ondansetron HCl (Ondansetron 4 Mg/2 Ml Inj) 4 mg IV NOW PRN PRN Reason: Nausea And Vomiting Oxycodone HCl (Oxycodone Ir 5 Mg Tablet) 5 mg PO PACUNOW PRN PRN Reason: Mild or moderate pain Last Admin: 06/08/24 13:12 Dose: 5 mg Documented By: TP Discontinued Medications Bupivacaine HCl (Bupivacaine 0.5% (Pf) 30 Ml Vial) 30 ml INJ NOW ONE Stop: 06/08/24 12:12 Last Admin: 06/08/24 12:11 Dose: 30 ml Documented By: OSITO Hydromorphone HCl (Hydromorphone 0.5 Mg Inj) 0.5 mg IV NOW ONE Stop: 06/08/24 09:40 Last Admin: 06/08/24 10:07 Dose: 0.5 mg Documented By: FLAVIO Piperacillin Sod/Tazobactam (Sod 4.5 gm/ Sodium Chloride) 100 mls @ 200 mls/hr IV NOW ONE Stop: 06/08/24 09:40 Last Admin: 06/08/24 10:06 Dose: 200 mls/hr Documented By: FLAVIO Ketorolac Tromethamine (Ketorolac 30 Mg/Ml Vial) 15 mg IV NOW ONE Stop: 06/08/24 07:14 Last Admin: 06/08/24 07:17 Dose: 15 mg Documented By: COLETTE Lidocaine/Epinephrine (Lidocaine 1% W/Epi 20ml) 20 ml INJ NOW ONE Stop: 06/08/24 12:12 Last Admin: 06/08/24 12:11 Dose: 20 ml Documented By: OSITO Pantoprazole Sodium (Pantoprazole 40 Mg Vial) 40 mg IV NOW ONE Stop: 06/08/24 07:31 Last Admin: 06/08/24 07:38 Dose: 40 mg Documented By: FLAVIO Vital Signs Vital signs: Vital Signs - 8 hr 06/08/24 05:50 06/08/24 06:00 06/08/24 06:01 Temperature 97.3 F L Pulse Rate 48 L 46 L Respiratory Rate 18 22 Blood Pressure 200/87 H 186/79 H Pulse Oximetry 99 98 Oxygen Delivery Method Room Air Room Air 06/08/24 06:01 06/08/24 06:30 06/08/24 06:31 Temperature Pulse Rate 45 L 46 L Respiratory Rate 23 24 Blood Pressure 186/83 H Pulse Oximetry 98 97 Oxygen Delivery Method Room Air 06/08/24 06:31 06/08/24 07:00 06/08/24 07:00 Temperature Pulse Rate 47 L 48 L Respiratory Rate 28 H 27 H Blood Pressure 212/91 H Pulse Oximetry 97 98 Oxygen Delivery Method Room Air 06/08/24 07:11 06/08/24 07:11 06/08/24 07:30 Temperature Pulse Rate 48 L 46 L Respiratory Rate 24 32 H Blood Pressure 182/84 H Pulse Oximetry 98 98 Oxygen Delivery Method 06/08/24 07:31 06/08/24 07:31 06/08/24 07:50 Temperature Pulse Rate 50 L 80 Respiratory Rate 22 28 H Blood Pressure 166/98 H Pulse Oximetry 98 96 Oxygen Delivery Method 06/08/24 07:50 06/08/24 08:00 06/08/24 08:00 Temperature Pulse Rate 53 L Respiratory Rate 17 Blood Pressure 174/81 H 170/79 H Pulse Oximetry 97 Oxygen Delivery Method 06/08/24 08:30 06/08/24 08:31 06/08/24 08:31 Temperature Pulse Rate 56 L 57 L Respiratory Rate 21 21 Blood Pressure 152/117 H Pulse Oximetry 96 97 Oxygen Delivery Method MDM - Abdominal Pain Lab Data 06/08/24 05:56 06/08/24 05:56 Labs: Lab Results 06/08/24 06/08/24 Range/Units 05:56 06:00 WBC 12.2 H (4.5-11.0) X10^3/uL RBC 4.22 L (4.5-5.9) X10^6/uL Hgb 13.5 (13.5-17.5) g/dL Hct 39.4 L (41-53) % MCV 93.3 (80-100) fL MCH 31.9 (26-34) PG MCHC 34.2 (30-36) % RDW 12.4 (11.6-14.8) % Plt Count 395 (150-400) X10^3/uL Neut % (Auto) 85.4 H (50-75) % Lymph % (Auto) 10.4 L (25-40) % [place] % (Auto) 3.6 (3-14) % Eos % (Auto) 0.1 L (2-4) % Baso % (Auto) 0.5 (0-2) % Neut # (Auto) 29736 H (5688-4680) /uL Lymph # (Auto) 1300 (6470-3282) /uL [place] # (Auto) 400 (0-900) /uL Eos # (Auto) 0 (0-450) /uL Baso # (Auto) 100 (0-100) /uL Sodium 141 (137-145) mmol/L Potassium 3.7 (3.4-5.1) mmol/L Chloride 104 (98-107) mmol/L Carbon Dioxide 24 (22-32) mmol/L BUN 18 (9-20) mg/dL Creatinine 0.83 (0.66-1.25) mg/dL Estimated GFR > 60 (>60) mL/min BUN/Creatinine Ratio 21.7 (6-22) Glucose 150 H (80-110) mg/dL Calcium 9.5 (8.4-10.2) mg/dL Total Bilirubin 0.5 (0.2-1.3) mg/dL AST 42 (17-59) IU/L ALT 38 (<50) IU/L Alkaline Phosphatase 67 (38-126) U/L Troponin I < 0.012 (0.01-0.034) ng/mL Total Protein 8.5 H (6.3-8.2) g/dL Albumin 5.1 H (3.5-5.0) g/dL Globulin 3.4 (1.7-4.1) g/dL Albumin/Globulin Ratio 1.5 (1.0-2.8) Lipase 93 (23-300) U/L Point of care testing: Urine Dip Bedside Urine Glucose Negative Bedside Urine Bilirubin - Negative Bedside Urine Ketone - Negative Urine Specific [place] 1.005 Bedside Urine Occult Blood - Negative Bedside Urine pH 7.5 Bedside Urine Protein - Negative Bedside Urine Urobilinogen - Negative Bedside Urine Nitrite - Negative Bedside Urine Leukocytes - Negative Esterase Imaging Data CT scan - abdomen/pelvis: Radiologist's Impression: PROCEDURE: CT ABDOMEN PELVIS W CON INDICATIONS: periumbilical pain TECHNIQUE: After the administration of intravenous contrast, axial sections acquired from the lung bases to the pubic symphysis. Coronal and sagittal reformats were performed. For radiation dose reduction, the following was used: automated exposure control, adjustment of mA and/or kV according to patient size. COMPARISON: [facility], CT, CT ABDOMEN PELVIS W CON, 12/04/2023, 14:52. FINDINGS: Image quality: Diagnostic. Lower Chest: Emphysematous change. Borderline cardiomegaly. ABDOMEN: Liver: No solid mass. Mild diffuse hepatic steatosis. Question cirrhotic change with a suggestion of a micronodular contour. Gallbladder: Gallbladder has a similar appearance to previous. There is a tiny calcified gallstone. There is mild prominence of the gallbladder wall, nonspecific in the setting of possible hepatocellular dysfunction. Biliary ducts: No biliary dilation. Pancreas: No ductal dilation. Spleen: Size is within normal limits. Adrenal Glands: No adrenal nodules. Kidneys and Ureters: No hydronephrosis. No solid mass. No complex renal cystic lesion which requires follow up. Stomach and Bowel: Normal colonic caliber, without significant wall thickening. Peritoneum: No abnormal intraperitoneal fluid. No free air. Ventral Wall: No significant ventral hernia. Abdominal Nodes: No retroperitoneal or mesenteric adenopathy by size criteria. Vessels: Aorta and inferior vena cava are normal in size. PELVIS: Pelvic Organs: Unremarkable. Bladder: No bladder wall thickening, accounting for underdistention. Pelvic Nodes: No enlarged lymph nodes. Miscellaneous: No inguinal hernias are seen. Bones: No aggressive osseous abnormality. IMPRESSION: 1. Mild emphysematous change. 2. Top normal heart size. 3. Suggestion of cirrhotic change. Mild diffuse hepatic steatosis. 4. Gallbladder is similar in appearance to before. The gallbladder is somewhat distended. There is a tiny calcified gallstone. There is mild prominence of the gallbladder wall, which is nonspecific in the setting of hepatocellular dysfunction. Comment: If suspect acute cholecystitis, right upper quadrant ultrasound may be helpful. Dictated by: Melvin Olivares M.D. on 06/08/2024 at 8:05 Approved by: Melvin Olivares M.D. on 06/08/2024 at 8:09 US - abdomen: Radiologist's Impression: PROCEDURE: US ABDOMEN LIMITED INDICATIONS: RUQ PAIN TECHNIQUE: Real-time scanning was performed of the abdominal and retroperitoneal organs, with image documentation. COMPARISON: None. FINDINGS: Liver: Liver is mildly enlarged in size and measures 17.4 cm. Diffusely increased liver parenchymal echotexture is seen. No discrete solid appearing hepatic lesion. Gallbladder: Stone is seen in dependent portion of gallbladder lumen. Borderline thickening of gallbladder wall measures up to 4.2 millimeters in thickness. Small amount of pericholecystic fluid is noted. No sonographic Toscano's sign. Biliary ducts: Intrahepatic bile ducts are non-dilated. Extrahepatic bile duct caliber measures 5.8 mm. Normal is 6-7 mm or less in diameter, or 10 mm or less post-cholecystectomy. Pancreas: Visualized portions of the pancreas are sonographically normal. Miscellaneous: No free abdominal fluid. IMPRESSION: 1. Cholelithiasis with mild gallbladder wall thickening and small amount of pericholecystic fluid concerning for early acute cholecystitis. No definite sonographic Toscano sign. If indicated, nuclear medicine HIDA scan can be done for further evaluation. 2. No biliary ductal dilatation. 3. Borderline hepatomegaly and hepatic steatosis. No discrete hepatic lesion. Dictated by: Jonatan De Jesus M.D. on 06/08/2024 at 8:52 ECG Data Attestation: I personally reviewed and interpreted this ECG as follows: Prior ECG tracings: available for review Interpretation: Normal sinus rhythm rate 46 [place] interval [address] changes no T-wave inversions, similar to prior MDM Narrative Medical decision making narrative: MDM CC: Abdominal pain Complicating co-morbidities: Hypertension dyslipidemia Medical records reviewed: Previous walk-in clinic visit on 05/23/2024 for chronic back pain Differential considered: Pancreatitis bowel obstruction dissection cholecystitis nephrolithiasis gastroenteritis Exam documented above, pertinent findings include: Patient is quite tenderness periumbilical area mildly tenderness in the right upper quadrant and epigastric no significant distention Lab Test results independently reviewed as above. Pertinent findings: WBC 12.2 Electrolytes within normal limits Bilirubin AST ALT all within normal limits lipase 93 Troponin negative Independently reviewed EKG as above No ischemia Imaging studies independently reviewed: CT abdomen does show slightly distended gallbladder with a tiny calcified stone Ultrasound concerning for acute cholecystitis with mild pericholecystic fluid and wall thickening along with cholelithiasis Consultations: Dr. Miranda, surgery updated patient's symptoms test results agrees to take patient to OR Treatments: Toradol Zofran Dilaudid Zosyn Re-evaluations: Patient is still having little bit of pain after Toradol Discussion: 68-year-old male presenting today with acute onset of abdominal pain nausea and vomiting. Blood work today is overall reassuring with mild leukocytosis of 12. Ultrasound confirms acute cholecystitis and cholelithiasis. Liver enzymes bilirubin within normal limits no concern for choledocholithiasis. Discussion with with surgery who will accept patient Patient given Zosyn. A long discussion with him about his penicillin allergy. It sounds as though when he was 20 he got sick and thought it was from penicillin antibiotic. He at no time had any sort of anaphylactic reaction or urticaria. He has always avoided it since but would like to try it now to see if he is truly allergic. Discussion with him to let us know if he starts having any of anaphylactic symptoms which I have gone over with him Discharge Plan Departure Patient Disposition: Admitted as Observation Clinical Impression: Acute cholecystitis Admit Date/Time: 06/08/24 09:41 Admit Provider: Eduardo Francois
[2024-06-08] MEDS: ONDANSETRON 4 MG/2 ML INJ IV (07:17)
[2024-06-08] MEDS: KETOROLAC 30 MG/ML VIAL 15 MG IV (07:17)
[2024-06-08] MEDS: PANTOPRAZOLE 40 MG VIAL IV (07:38)
--- NOTE | 2024-06-08 07:43 | DI.CT.S_ITS ---
PROCEDURE: CT ABDOMEN PELVIS W CON INDICATIONS: periumbilical pain TECHNIQUE: After the administration of intravenous contrast, axial sections acquired from the lung bases to the pubic symphysis. Coronal and sagittal reformats were performed. For radiation dose reduction, the following was used: automated exposure control, adjustment of mA and/or kV according to patient size. COMPARISON: [facility], CT, CT ABDOMEN PELVIS W CON, 12/04/2023, 14:52. FINDINGS: Image quality: Diagnostic. Lower Chest: Emphysematous change. Borderline cardiomegaly. ABDOMEN: Liver: No solid mass. Mild diffuse hepatic steatosis. Question cirrhotic change with a suggestion of a micronodular contour. Gallbladder: Gallbladder has a similar appearance to previous. There is a tiny calcified gallstone. There is mild prominence of the gallbladder wall, nonspecific in the setting of possible hepatocellular dysfunction. Biliary ducts: No biliary dilation. Pancreas: No ductal dilation. Spleen: Size is within normal limits. Adrenal Glands: No adrenal nodules. Kidneys and Ureters: No hydronephrosis. No solid mass. No complex renal cystic lesion which requires follow up. Stomach and Bowel: Normal colonic caliber, without significant wall thickening. Peritoneum: No abnormal intraperitoneal fluid. No free air. Ventral Wall: No significant ventral hernia. Abdominal Nodes: No retroperitoneal or mesenteric adenopathy by size criteria. Vessels: Aorta and inferior vena cava are normal in size. PELVIS: Pelvic Organs: Unremarkable. Bladder: No bladder wall thickening, accounting for underdistention. Pelvic Nodes: No enlarged lymph nodes. Miscellaneous: No inguinal hernias are seen. Bones: No aggressive osseous abnormality. IMPRESSION: 1. Mild emphysematous change. 2. Top normal heart size. 3. Suggestion of cirrhotic change. Mild diffuse hepatic steatosis. 4. Gallbladder is similar in appearance to before. The gallbladder is somewhat distended. There is a tiny calcified gallstone. There is mild prominence of the gallbladder wall, which is nonspecific in the setting of hepatocellular dysfunction. Comment: If suspect acute cholecystitis, right upper quadrant ultrasound may be helpful. Dictated by: Melvin Olivares M.D. on 06/08/2024 at 8:05 Approved by: Melvin Olivares M.D. on 06/08/2024 at 8:09
--- NOTE | 2024-06-08 08:15 | DI.US.S_ITS ---
PROCEDURE: US ABDOMEN LIMITED INDICATIONS: RUQ PAIN TECHNIQUE: Real-time scanning was performed of the abdominal and retroperitoneal organs, with image documentation. COMPARISON: None. FINDINGS: Liver: Liver is mildly enlarged in size and measures 17.4 cm. Diffusely increased liver parenchymal echotexture is seen. No discrete solid appearing hepatic lesion. Gallbladder: Stone is seen in dependent portion of gallbladder lumen. Borderline thickening of gallbladder wall measures up to 4.2 millimeters in thickness. Small amount of pericholecystic fluid is noted. No sonographic Toscano's sign. Biliary ducts: Intrahepatic bile ducts are non-dilated. Extrahepatic bile duct caliber measures 5.8 mm. Normal is 6-7 mm or less in diameter, or 10 mm or less post-cholecystectomy. Pancreas: Visualized portions of the pancreas are sonographically normal. Miscellaneous: No free abdominal fluid. IMPRESSION: 1. Cholelithiasis with mild gallbladder wall thickening and small amount of pericholecystic fluid concerning for early acute cholecystitis. No definite sonographic Toscano sign. If indicated, nuclear medicine HIDA scan can be done for further evaluation. 2. No biliary ductal dilatation. 3. Borderline hepatomegaly and hepatic steatosis. No discrete hepatic lesion. Dictated by: Jonatan De Jesus M.D. on 06/08/2024 at 8:52 Approved by: Jonatan De Jesus M.D. on 06/08/2024 at 9:25
--- NOTE | 2024-06-08 08:16 | PC.NURSE ---
Pt states that he is nausea and pain free. States that he was finally able to fall asleep for a while. a&ox4.
[2024-06-08] MEDS: PIPERACILLIN/TAZO 4.5 GM in SODIUM CHLORIDE 0.9% 100 ML IV (10:06)
[2024-06-08] MEDS: HYDROMORPHONE 0.5 MG INJ IV (10:07)
--- NOTE | 2024-06-08 10:30 | PM.HP.IH.1 ---
History of Present Illness History of Present Illness Date Patient Seen: 06/08/24 Time Patient Seen: 10:30 Chief complaint: abd pain, vomiting Narrative: RUQ pain, and Nausea and Vomiting, Leukocytosis, and US showed acute calculous cholecystitis, NO elevation in his LFTs, ready for surgery, will proceed right away with ramon nevareze. [facility] Medical History Other low back pain Essential hypertension Dyslipidemia Obesity Overweight (BMI 25.0-29.9) Knee pain, bilateral Left anterior shoulder pain Essential (primary) hypertension Right ankle pain (~02/2017) Right foot pain Hallux valgus with bunions of right foot (~02/2017) Arthritis of first metatarsophalangeal (MTP) joint of right foot Gout (2002) Family History Brother Gout, unspecified Essential hypertension Mother Essential hypertension Social History Smoking Status: Former smoker Tobacco: How many years used: 20 second hand exposure: No alcohol intake: current (a few beers per week ) substance use type: does not use Meds Home Medications and Allergies Home Medications Medication Instructions Recorded Confirmed Type magnesium 250 mg tablet 250 mg PO DAILY 01/01/23 06/08/24 History nitric oxide powder 1 packet PO DAILY 01/01/23 06/08/24 History allopurinol 100 mg tablet 100 mg PO DAILY #90 tabs 02/29/24 06/08/24 Rx lisinopril 5 mg tablet 5 mg PO DAILY #90 tabs 02/29/24 06/08/24 Rx omeprazole 20 mg capsule,delayed 20 mg PO BID 8 weeks #112 caps 05/23/24 06/08/24 Rx release sucralfate 1 gram tablet (Carafate) 1 g PO QACHS ulcer #60 tabs 05/23/24 06/08/24 Rx Allergies Allergy/AdvReac Type Severity Reaction Status Date / Time Penicillins AdvReac Unknown Verified 06/08/24 10:23 Review of Systems Review of Systems ROS: Yes All systems reviewed with the patient and are negative except as otherwise documented Exam Vital Signs (past 8 hours): - 06/08/24 05:45 06/08/24 05:50 06/08/24 06:00 Temperature 97.3 F L Pulse Rate 47 L 48 L 46 L Respiratory Rate 18 22 Blood Pressure 200/87 H Pulse Oximetry 99 99 98 Oxygen Delivery Method Room Air Room Air 06/08/24 06:01 06/08/24 06:01 06/08/24 06:30 Temperature Pulse Rate 45 L 46 L Respiratory Rate 23 24 Blood Pressure 186/79 H Pulse Oximetry 98 97 Oxygen Delivery Method Room Air 06/08/24 06:31 06/08/24 06:31 06/08/24 07:00 Temperature Pulse Rate 47 L Respiratory Rate 28 H Blood Pressure 186/83 H 212/91 H Pulse Oximetry 97 Oxygen Delivery Method Room Air 06/08/24 07:00 06/08/24 07:11 06/08/24 07:11 Temperature Pulse Rate 48 L 48 L Respiratory Rate 27 H 24 Blood Pressure 182/84 H Pulse Oximetry 98 98 Oxygen Delivery Method 06/08/24 07:30 06/08/24 07:31 06/08/24 07:31 Temperature Pulse Rate 46 L 50 L Respiratory Rate 32 H 22 Blood Pressure 166/98 H Pulse Oximetry 98 98 Oxygen Delivery Method 06/08/24 07:50 06/08/24 07:50 06/08/24 08:00 Temperature Pulse Rate 80 53 L Respiratory Rate 28 H 17 Blood Pressure 174/81 H Pulse Oximetry 96 97 Oxygen Delivery Method 06/08/24 08:00 06/08/24 08:30 06/08/24 08:31 Temperature Pulse Rate 56 L Respiratory Rate 21 Blood Pressure 170/79 H 152/117 H Pulse Oximetry 96 Oxygen Delivery Method 06/08/24 08:31 06/08/24 10:06 06/08/24 10:06 Temperature Pulse Rate 57 L 83 Respiratory Rate 21 Blood Pressure 165/76 H Pulse Oximetry 97 97 Oxygen Delivery Method Oxygen Delivery Method Room Air Narrative Exam Narrative: RUQ tender, positive Toscano sign. Objective Labs 06/08/24 05:56 06/08/24 05:56 Labs: Laboratory Results - last 24 hr 06/08/24 06/08/24 05:56 06:00 WBC 12.2 H RBC 4.22 L Hgb 13.5 Hct 39.4 L MCV 93.3 MCH 31.9 MCHC 34.2 RDW 12.4 Plt Count 395 Neut % (Auto) 85.4 H Lymph % (Auto) 10.4 L [place] % (Auto) 3.6 Eos % (Auto) 0.1 L Baso % (Auto) 0.5 Neut # (Auto) 29853 H Lymph # (Auto) 1300 [place] # (Auto) 400 Eos # (Auto) 0 Baso # (Auto) 100 Sodium 141 Potassium 3.7 Chloride 104 Carbon Dioxide 24 BUN 18 Creatinine 0.83 Estimated GFR > 60 BUN/Creatinine Ratio 21.7 Glucose 150 H Calcium 9.5 Total Bilirubin 0.5 AST 42 ALT 38 Alkaline Phosphatase 67 Troponin I < 0.012 Total Protein 8.5 H Albumin 5.1 H Globulin 3.4 Albumin/Globulin Ratio 1.5 Lipase 93 Assessment & Plan Assessment and plan (1) Acute calculous cholecystitis: Problem details: RUQ pain, and Nausea and Vomiting, Leukocytosis, and US showed acute calculous cholecystitis, NO elevation in his LFTs, ready for surgery, will proceed right away with lap cholo. Status: Acute Time-Based Coding :: [TOTAL MINUTES] spent with patient and on the chart (including review of chart, obtaining history, exam, reviewing outside data, placing orders, documenting exam and treatment plan, and counseling patient) on [DATE]. [employer] Document charge(s): Yes
[2024-06-08] MEDS: ACETAMINOPHEN 325 MG TABLET 975 MG PO (10:40)
[2024-06-08] MEDS: LACTATED RINGERS 1,000 ML 42 ML IV (10:41)
--- NOTE | 2024-06-08 11:22 | SUR.OPER ---
Supine on padded OR bed, head on pillow, safety belt at thigh, left arm padded and tucked at side. Right arm secured on padded arm board <90 degrees abduction. Legs uncrossed. Padded footboard in place. Tape over blanket to secure lower legs.
[2024-06-08] MEDS: LIDOCAINE 1% W/EPI 20ML 20 ML INJ (12:11)
[2024-06-08] MEDS: BUPIVACAINE 0.5% (PF) 30 ML VIAL INJ (12:11)
--- NOTE | 2024-06-08 12:38 | P.OP_ITS ---
Operative Date/Time/Diagnoses Date of procedure: 06/08/24 Time of procedure: 12:38 Pre-op diagnosis: Acute calculous cholecystitis Post-op diagnosis: same Procedure & Clinicians Same procedure as scheduled: Yes Surgeon: Eduardo Francois Click Yes if Unassisted: Yes Operative Notes Findings: OPERATIVE REPORT Anand Gomez, 1955, 68, 68, CSN: [id number] 06/08/24 Preoperative diagnosis: Symptomatic Acute on top of chronic calculous cholecystitis. Postoperative diagnosis: Same. Procedure: Laparoscopic cholecystectomy. Surgeon: Eduardo Francois MD, FACS, F[employer] Surgeon: NONE Anesthesia: General Endotracheal Anesthesia + Local 1% Xylocaine With Epinephrine, 0.5% Marcaine, mixed, 50% : 50%. Specimen(s): Gall Bladder was sent to permanent pathology. Estimated Blood Loss: Less than 5 ml. Drain: None. Complications: None. Condition/Disposition: Stable, Extubated, to PACU Indications: This 68-year-old Male developed right upper quadrant pain/ nausea/ vomiting/ fever/ leukocytosis and on workup was found to have cholelithiasis with a normal common duct/ cholecystitis. Laparoscopic cholecystectomy was elected. After informed consent was signed, knowing the risks and benefits, possible alternatives and potential complications of the procedure including but not limited to: bleeding, infection, incisional hernia(s), injury to the common bile duct or right hepatic duct, bile leak, subhepatic abscess, retained common bile duct stones, bowel injury, need for interventional radiology procedures like drain placement or gastro-enterology procedure like ERCP/stent placements, and possibly the need for further surgeries. Patient is well aware of the rare yet possible need for conversion to open cholecystectomy if conditions are not favorable. Description of procedure: The patient was appropriately identified in the holding area. Appropriate IV antibiotic was given astronomy professor to OR (operating room). Hibiclens abdominal skin prep was performed in the holding area and flor hose and sequential compression devices were placed on the lower extremities bilaterally and activated. Pt voided her urinary bladder astronomy professor to OR. The patient was then brought to the operating room, and placed on the operating table in the supine position. A time-out was completed verifying correct patient and procedure.The patient was then brought to the operating room, and placed on the operating table in the supine position. A time-out was completed verifying correct patient and procedure. An orogastric tube was placed by anesthesia, and connected to suction to decompress the stomach. Anesthesia endotracheally intubated the patient uneventfully and general endotracheal anesthesia was started. The abdomen was prepped and draped in the usual sterile fashion. The local anesthetic mixture mentioned above was used to infiltrate the planned incisions sites starting intradermally raising a wheal at the skin level, and through the layers all the way to the preperitoneal level where another wheal was raised, preemptively before making any incisions and post operatively at the end of the procedure. A 1cm incision was made in a natural skin crease periumbilically, dissection was carried down to the fascia, the fascia and peritoneum were opened under direct visualization and the peritoneal cavity was entered safely; careful inspection revealed no bowels or solid organs noted in the vicinity of the incision. A [id number] suture with 0-Vicryl was placed for future closure of this fascial defect at the end of the procedure. A 12-mm port was introduced through the fascia and pneumoperitoneum was instituted using CO2 (carbon dioxide) insufflation, up to 12-14 mmHg pressure. The patient tolerated insufflation well. A 5-mm/30 degree scope was introduced through the port, the abdomen was inspected and no injuries from initial trocar placement were noted. Then under direct visualization three 5-mm ports were placed in the right upper quadrant / subcostal region: 2 finger-breadths below and parallel to the right costal margin, 8-10 cm apart one from the other: in the epigastrium, midclavicular line and anterior axillary line. The table was then placed in the reverse Trendelenburg position with the right side up. Filmy adhesions between the gallbladder and omentum/ duodenum/ transverse colon were lysed sharply. The fundus of the gallbladder was grasped with an atraumatic grasper passed through the lateral-most port and retracted superiorly and laterally. The Oquendo's pouch (infundibulum of the gall bladder) was also grasped with an atraumatic grasper through the midclavicular port and retracted laterally. These maneuvers exposed Calot?s triangle nicely. The anterior, and then the posterior peritoneum overlying the gallbladder's infundibulum were then incised meticulously and the cystic duct and cystic artery were both clearly identified and circumferentially skeletonized with gentle dissection. The cystic duct was triply clipped and sharply divided close to the gallbladder, leaving 2 clips on the common bile duct side and one on the gall bladder side of the cystic duct. Likewise, the cystic artery was triply clipped and divided using electrocautery, leaving 2 clips on the hepatic artery side and one on the gall bladder side of the cystic artery. The gallbladder was then dissected from its peritoneal attachments and from its gall bladder liver bed using the hook electrocautery. Hemostasis was secured all along the dissection and the gallbladder was retrieved in its entirety using the endo-catch bag (the endoscopic retrieval bag) introduced through the umbilical port after switching the camera to the epigastric / subxiphoid port . The gallbladder was passed off the table as a specimen after it was palpated for any neoplastic abnormalities, and none were noted. The gallbladder fossa was re-inspected, and irrigated as needed with saline and perfectly adequate hemostasis was noted. There was no evidence of bleeding from the gallbladder fossa or cystic artery or leakage of the bile from the cystic duct stump or the liver bed. The orogastric tube was removed uneventfully All three subcostal trocars were removed under direct visualization without any evidence of port site bleeding. The laparoscope was withdrawn and the umbilical trocar removed. The pneumoperitoneum was evacuated. The pre-placed 0- Vicryl suture was tied to approximate the fascial defect of the 12-mm trocar site. Further more local anesthetic was injected to all trocar sites. The skin was then approximated using 4-0 Antibacterial Monocryl in a subcuticular fashion, followed by the application of Dermabond / topical skin adhesive. The patient tolerated the procedure very well without any complications, was extubated in the OR and was taken to the PACU (postanesthesia care unit) in stable condition. Eduardo Francois MD, FACS, [facility]
[2024-06-08] MEDS: OXYCODONE IR 5 MG TABLET PO (13:12)
== END 2024-06-08 14:05 | disposition home or self-care (01) ==
LOC: ED 06:51 → AC 09:42
PROVIDERS: Emergency Medicine; Admitting Provider Surgery; Emergency Provider Emergency Medicine; PCP Registered Nurse Diabetes Educator; Referring Provider Emergency Medicine; Visit Provider Surgery
PROC: 0FT44ZZ Resection of Gallbladder, Percutaneous Endoscopic Approach (ICD-10-PCS; CPT 47562; principal; 2024-06-08 14:00)
DX: K80.12 Calculus of gallbladder with acute and chronic cholecystitis without obstruction (principal); K66.0 Peritoneal adhesions (postprocedural) (postinfection); I10 Essential (primary) hypertension; Z87.891 Personal history of nicotine dependence
CPT/HCPCS: 47562; 36415; 74177; 76705; 80053; 81003; 83690; 84484; 85025; 93005; 96361; 96374; 96375; 99222; 99284; G0378; J0330; J1100; J1171; J1885; J2405; J2470; J2543; J2704; J3010; J3490; Q9967

== ENCOUNTER → 2025-02-25 08:02 | Outpatient (CLI) | payer OTHER, SELFPAY ==
[2025-02-25 09:30] LABS: Hematocrit 38.5 % (41-53); Hemoglobin 13.3 g/dL (13.5-17.5); Mean Corpuscular HGB Conc 34.4 % (30-36); Mean Corpuscular Hemoglobin 32.5 PG (26-34); Mean Corpuscular Volume 94.6 fL (80-100); Platelet Count 258 X10^3/uL (150-400)
[2025-02-25 10:33] LABS: Alanine Aminotransferase 15 IU/L (<50); Albumin 4.5 g/dL (3.5-5.0); Albumin Globulin Ratio 1.7 (1.0-2.8); Alkaline Phosphatase 65 U/L (38-126); Blood Urea Nitrogen 17 mg/dL (9-20); Calcium 9.7 mg/dL (8.4-10.2); Carbon Dioxide 26 mmol/L (22-32); Chloride 105 mmol/L (98-107); Cholesterol 191 mg/dL (140-199); Estimated Glomerular Filt Rate > 60 mL/min (>60); Globulin 2.7 g/dL (1.7-4.1); Glucose 99 mg/dL (70-99); HDL Cholesterol 60 mg/dL (40-60); HEMOLYSIS < 15 (0-50); Potassium 4.4 mmol/L (3.4-5.1); Sodium 140 mmol/L (137-145); Total Protein 7.2 g/dL (6.3-8.2); Triglycerides 92 mg/dL (35-150); Uric Acid 5.9 mg/dL (3.5-8.5)
== END ==
PROVIDERS: PCP Registered Nurse Diabetes Educator; Referring Provider Registered Nurse Diabetes Educator; Visit Provider Registered Nurse Diabetes Educator
DX: I10 Essential (primary) hypertension (principal); E78.5 Hyperlipidemia, unspecified; M10.9 Gout, unspecified; D64.9 Anemia, unspecified
CPT/HCPCS: 36415; 80053; 80061; 84550; 85027